=== PATIENT | male | born 1980 | race Caucasian/White ===

== ENCOUNTER 2019-12-21 20:36 | Emergency (ER) | payer MEDICAID, SELFPAY ==
[2019-12-21 20:41] VITALS: BP 122/72; PULSE 69; RESP 18; TEMP 35.7; O2SAT 96; BMI 21.9
== END 2019-12-21 21:52 | disposition left against medical advice (07) ==
PROVIDERS: Emergency Provider Physician Assistant; PCP Family Medicine
DX: Z53.21 Procedure and treatment not carried out due to patient leaving prior to being seen by health care provider (principal)
CPT/HCPCS: 99281

== ENCOUNTER 2020-01-18 06:54 | Emergency (ER) | payer MEDICAID, SELFPAY ==
[2020-01-18 06:57] VITALS: BP 132/86; PULSE 114; RESP 18; TEMP 36.6; O2SAT 96
--- NOTE | 2020-01-18 07:13 | ED_ITS ---
HPI - Nausea/Vomiting/Diarrhea General: Chief complaint: Nausea/Vomiting/Diarrhea Stated complaint: N/V Time Seen by Provider: 01/18/20 07:08 History of Present Illness: HPI Narrative: Patient arrives via EMS complaining of nausea and vomiting. Patient states he does not know when he became sick. Patient also states that he does not know his own medical history. Patient has been verbally abusive to nursing. Gross examination is consistent with a patient under the influence of methamphetamine. [facility] ED PFSH: Social History Smoking and tobacco status: current every day smoker Course Vital Signs: Vital signs: Vital Signs Temperature 97.9 F 01/18/20 06:57 Pulse Rate 114 H 01/18/20 06:57 Respiratory Rate 18 01/18/20 06:57 Blood Pressure 132/86 01/18/20 06:57 Pulse Oximetry 96 01/18/20 06:57 MDM - Nausea/Vomiting/Diarrhea Lab Data: Labs: Lab Results 01/18/20 01/18/20 01/18/20 Range/Units 07:22 07:22 07:22 WBC 12.8 H (4.0-10.0) 10^3/ uL RBC 4.73 (4.1-5.3) 10^6/u L Hgb 14.8 (11.7-16.6) g/dL Hct 43.5 (42.0-52.0) % MCV 92.0 (80-94) fL MCH 31.3 (28.0-34.0) pg MCHC 34.0 (30.0-36.0) g/dL RDW 12.6 (12.1-15.1) % Plt Count 235 (130-400) 10^3/c mm MPV 11.4 H (7.4-10.4) fL Neut % (Auto) 68.3 % Lymph % (Auto) 20.8 % [place] % (Auto) 7.0 % Eos % (Auto) 2.9 % Baso % (Auto) 0.7 % Neut # (Auto) 8.8 H (1.8-7.7) 10^3/u L Lymph # (Auto) 2.7 (0.8-4.8) 10^3/u L [place] # (Auto) 0.9 (0.2-0.9) 10^3/u L Eos # (Auto) 0.4 (0.0-0.8) 10^3/u L Baso # (Auto) 0.1 (0.0-0.1) 10^3/u L Nucleated RBC % (a uto) 0 % Nucleated RBCs # 0.0 /100WBC Sodium 139 (136-145) mmol/L Potassium 3.6 (3.5-5.1) mmol/L Chloride 102 (98-107) mmol/L Carbon Dioxide 22 (22-29) mmol/L Anion Gap 18.6 (5-19) BUN 17 (6-20) mg/dL Creatinine 1.0 (0.7-1.2) mg/dL GFR Calculation 84.1 L (90-130) mL/min Glucose 131 H (65-115) mg/dL Calculated Osmolal ity 286 (285-295) mOsm/k g Lactate 1.6 (0.5-2.2) mmol/L Calcium 9.9 (8.5-10.5) mg/dL Total Bilirubin 0.4 (0.15-1.2) mg/dL AST 22 (0-40) U/L ALT 17 (0-41) U/L Alkaline Phosphata se 56 (40-130) IU/L Total Protein 7.0 (6.6-8.7) g/dL Albumin 4.2 (3.5-5.2) g/dL Globulin 2.8 (1.3-4.6) g/dL Lipase 22 (13-60) U/L Salicylates < 0.3 L (3-10) mg/dL Acetaminophen < 5.0 L (10-30) ug/mL Ethyl Alcohol < 10 (0-10) mg/dL Discharge Plan Discharge Patient Disposition: Left Against Medical Advice Clinical Impression: Drug-induced nausea and vomiting Condition: Stable Prescriptions: No Action No Known Home Medications RF: 0 Discharge Orders: Discharge Order (Routine); Ordered 01/18/20 Ordered By: Wilber Apple Referrals: Aric Chao MD [Primary Care Provider] - Coding Level of Care Code ED Distribution Field Engineer for [facility] Khoa
[2020-01-18] MEDS: ondansetron 2 mg/ML SDV 2 mL 8 MG IVP (07:15)
[2020-01-18] MEDS: haloperidol inj 5 mg/mL INJ 1 mL 10 MG IM (07:15)
[2020-01-18] MEDS: sodium chloride 0.9% 1,000 ML 999 ML IV (07:15)
[2020-01-18 07:37] LABS: Basophils # 0.1 10^3/uL (0.0-0.1); Basophils % 0.7 %; Eosinophils # 0.4 10^3/uL (0.0-0.8); Eosinophils % 2.9 %; Hematocrit 43.5 % (42.0-52.0); Hemoglobin 14.8 g/dL (11.7-16.6); Lymphocytes # 2.7 10^3/uL (0.8-4.8); Lymphocytes % 20.8 %; Mean Corpuscular Hemoglobin 31.3 pg (28.0-34.0); Mean Platelet Volume 11.4 fL (7.4-10.4); Monocytes # 0.9 10^3/uL (0.2-0.9); Neutrophils # 8.8 10^3/uL (1.8-7.7); Neutrophils % 68.3 %; Nucleated Red Blood Cells % 0 %; Platelet Count 235 10^3/cmm (130-400); Red Blood Count 4.73 10^6/uL (4.1-5.3); Red Cell Distribution Width 12.6 % (12.1-15.1); White Blood Count 12.8 10^3/uL (4.0-10.0)
[2020-01-18 07:44] LABS: Lactate (Lactic Acid level) 1.6 mmol/L (0.5-2.2)
[2020-01-18 07:47] LABS: Alanine Aminotransferase 17 U/L (0-41); Albumin Level 4.2 g/dL (3.5-5.2); Alkaline Phosphatase 56 IU/L (40-130); Anion Gap 18.6 (5-19); Aspartate Amino Transferase 22 U/L (0-40); Blood Urea Nitrogen 17 mg/dL (6-20); Calcium 9.9 mg/dL (8.5-10.5); Carbon Dioxide 22 mmol/L (22-29); Chloride 102 mmol/L (98-107); Globulin 2.8 g/dL (1.3-4.6); Glomerular Filtration Rate 84.1 mL/min (90-130); Glucose 131 mg/dL (65-115); Lipase 22 U/L (13-60); Osmolality Calculated 286 mOsm/kg (285-295); Potassium 3.6 mmol/L (3.5-5.1); Sodium 139 mmol/L (136-145); Total Bilirubin 0.4 mg/dL (0.15-1.2)
[2020-01-18 07:49] LABS: Acetaminophen < 5.0 ug/mL (10-30); Alcohol Level < 10 mg/dL (0-10); Salicylate < 0.3 mg/dL (3-10)
== END 2020-01-18 08:13 | disposition left against medical advice (07) ==
PROVIDERS: Emergency Provider Family Medicine; PCP Family Medicine
DX: R11.2 Nausea with vomiting, unspecified (principal); Z53.21 Procedure and treatment not carried out due to patient leaving prior to being seen by health care provider; F17.210 Nicotine dependence, cigarettes, uncomplicated
CPT/HCPCS: 12345; 36415; 80053; 80307; 83605; 83690; 85025; 96361; 96372; 96374; 96375; 99282; 99283; J1630; J2405; J7030

== ENCOUNTER 2020-03-29 09:20 | Inpatient (IN) | payer MEDICAID, SELFPAY ==
[2020-03-29 09:36] VITALS: BMI 23.5
[2020-03-29 09:40] VITALS: BP 113/79; PULSE 71; RESP 16; TEMP 36.7; O2SAT 97
[2020-03-29 10:00] LABS: Basophils # 0.1 10^3/uL (0.0-0.1); Basophils % 0.7 %; Eosinophils # 0.3 10^3/uL (0.0-0.8); Eosinophils % 3.5 %; Hematocrit 44.4 % (42.0-52.0); Hemoglobin 14.7 g/dL (11.7-16.6); Lymphocytes # 2.8 10^3/uL (0.8-4.8); Lymphocytes % 34.8 %; Mean Corpuscular HGB Conc 33.1 g/dL (30.0-36.0); Mean Corpuscular Hemoglobin 31.2 pg (28.0-34.0); Mean Corpuscular Volume 94.3 fL (80-94); Mean Platelet Volume 12.8 fL (7.4-10.4); Monocytes # 0.5 10^3/uL (0.2-0.9); Monocytes % 6.6 %; Neutrophils # 4.35 10^3/uL (1.8-7.7); Neutrophils % 54.3 %; Nucleated Red Blood Cells % 0 %; Platelet Count 154 10^3/cmm (130-400); Red Blood Count 4.71 10^6/uL (4.1-5.3); Red Cell Distribution Width 12.6 % (12.1-15.1)
[2020-03-29 10:10] LABS: Add Urine Microscopic? NO
--- NOTE | 2020-03-29 10:18 | ED_ITS ---
HPI - Psych General: Chief Complaint: Psychiatric Symptoms Stated Complaint: SI Time Seen by Provider: 03/29/20 09:39 History of Present Illness: HPI Narrative: Patient states he suicidal said he took a bunch of somas the other day and is doing meth that he is snorting. That he just done while living more he was try to kill himself and he comes in here seeking help today MD complaint: suicidal ideation Onset (ago): day(s) Duration: constant and getting worse History of same: Yes Relieving factors: none Context: recent drug abuse Associated symptoms: Reports depression and suicidal ideation If self harm: intentional overdose Review of Systems Const: Denies: fever(s), chills or body aches Eyes: Denies: change in vision or blurry vision ENMT: Denies: throat pain or nasal congestion Card: Denies: chest pain or dyspnea on exertion Resp: Denies: dyspnea, productive cough or non-productive cough GI: Denies: abdominal pain, nausea or vomiting : Denies: difficulty urinating Musc: Denies: extremity pain Skin/Breast: Denies: rash Neuro: Denies: headache(s) Psych: Reports: anxiety, depression and suicidal ideation Justice/Lymph: Denies: easy bruising PFSH ED PFSH: Social History Smoking and tobacco status: current every day smoker Physical Exam Const: COMMON NORMALS: no acute distress, average body habitus and patient oriented x3 HENMT: COMMON NORMALS: normocephalic HEAD & SCALP: normal to inspection and normocephalic FACE & SINUS: normal facial exam Eye: COMMON NORMALS: conjunctivae normal GENERAL EYE: appearance normal, both eyes and all related structures CONJUNCTIVA: Yes conjunctivae normal Neck/C-Spine: COMMON NORMALS: no JVD Chest: COMMONS NORMALS: normal inspection of the chest Resp: COMMON NORMALS: normal respiratory effort and clear to auscultation bilaterally AUSCULTATION: clear to auscultation bilaterally Cardio: COMMON NORMALS: no JVD, regular rate and regular rhythm RATE: regular rate RHYTHM: regular rhythm GI: COMMON NORMALS: Normal to inspection, nondistended, normoactive bowel sounds present Extremity: COMMON NORMALS: normal to inspection and full ROM Neuro: COMMON NORMALS: patient oriented x3 Psych: ATTITUDE: Yes agitated MOOD & AFFECT: Yes anxious MDM - Psych MDM Narrative: Medical decision making narrative: Dr. Henson agrees accept patient in Neuropsych Unit Lab Data: Labs: Lab Results 03/29/20 03/29/20 03/29/20 Range/Units 09:54 09:55 09:55 WBC 8.0 (4.0-10.0) 10^3/ uL RBC 4.71 (4.1-5.3) 10^6/u L Hgb 14.7 (11.7-16.6) g/dL Hct 44.4 (42.0-52.0) % MCV 94.3 H (80-94) fL MCH 31.2 (28.0-34.0) pg MCHC 33.1 (30.0-36.0) g/dL RDW 12.6 (12.1-15.1) % Plt Count 154 (130-400) 10^3/c mm MPV 12.8 H (7.4-10.4) fL Neut % (Auto) 54.3 % Lymph % (Auto) 34.8 % [place] % (Auto) 6.6 % Eos % (Auto) 3.5 % Baso % (Auto) 0.7 % Neut # (Auto) 4.35 (1.8-7.7) 10^3/u L Lymph # (Auto) 2.8 (0.8-4.8) 10^3/u L [place] # (Auto) 0.5 (0.2-0.9) 10^3/u L Eos # (Auto) 0.3 (0.0-0.8) 10^3/u L Baso # (Auto) 0.1 (0.0-0.1) 10^3/u L Nucleated RBC % (a uto) 0 % Nucleated RBCs # 0.0 /100WBC Sodium 135 L (136-145) mmol/L Potassium 4.4 (3.5-5.1) mmol/L Chloride 100 (98-107) mmol/L Carbon Dioxide 26 (22-29) mmol/L Anion Gap 13.4 (5-19) BUN 16 (6-20) mg/dL Creatinine 1.0 (0.7-1.2) mg/dL GFR Calculation 83.6 L (90-130) mL/min Glucose 93 (65-115) mg/dL Calculated Osmolal ity 276 L (285-295) mOsm/k g Calcium 9.6 (8.5-10.5) mg/dL Urine Color Yellow (Yellow) Urine Appearance Clear (CLEAR) Urine pH 5 (5-7) Ur Specific Gravit y 1.005 (1.005-1.030) Urine Protein Neg (Negative) Urine Glucose (UA) Norm (Normal) Urine Ketones Negative (Negative) Urine Blood Neg (Negative) Urine Nitrate Negative (Negative) Urine Bilirubin Neg (NEGATIVE) Urine Urobilinogen Neg (Negative) mg/dL Ur Leukocyte Ria ase Negative (Negative) Salicylates < 0.3 L (3-10) mg/dL Acetaminophen < 5.0 L (10-30) ug/mL Discharge Plan Discharge Prescriptions: No Action No Known Home Medications RF: 0 Coding Level of Care Code ED Export Sales Manager for [facility] Exam Comprehensive
[2020-03-29 10:21] LABS: Slide Review Slide Review Perform
[2020-03-29 10:23] LABS: Anion Gap 13.4 (5-19); Blood Urea Nitrogen 16 mg/dL (6-20); Calcium 9.6 mg/dL (8.5-10.5); Carbon Dioxide 26 mmol/L (22-29); Chloride 100 mmol/L (98-107); Glomerular Filtration Rate 83.6 mL/min (90-130); Glucose 93 mg/dL (65-115); Osmolality Calculated 276 mOsm/kg (285-295); Potassium 4.4 mmol/L (3.5-5.1); Sodium 135 mmol/L (136-145)
[2020-03-29 10:24] LABS: Acetaminophen < 5.0 ug/mL (10-30); Salicylate < 0.3 mg/dL (3-10)
[2020-03-29 10:24] LABS: Bilirubin Urine Neg (NEGATIVE); Blood Urine Neg (Negative); Glucose Urine UA Norm (Normal); Ketones Urine Negative (Negative); Leukocyte Esterase Urine Negative (Negative); Nitrate Urine Negative (Negative); Protein Urine Neg (Negative); Specific Gravity, Urine 1.005 (1.005-1.030); Urine Appearance Clear (CLEAR); Urine Color Yellow (Yellow); Urobilinogen Urine Neg (Negative); pH Urine 5 (5-7)
[2020-03-29] MEDS: LORazepam 1 mg Tablet PO (10:28)
[2020-03-29 10:55] LABS: Amphetamines Screen Urine Positive (Negative); Barbiturates Screen Urine Negative (Negative); Benzodiazepines Screen Urine Negative (Negative); Cocaine Screen Urine Negative (Negative); Opiate Screen Urine Negative (Negative); PCP Screen Urine Negative (Negative); THC Screen Urine Positive (Negative)
[2020-03-29 11:19] VITALS: BP 115/85; PULSE 85; O2SAT 98
[2020-03-29 12:17] VITALS: BP 103/71; PULSE 71; RESP 20; TEMP 36.6; O2SAT 100
[2020-03-29 13:19] VITALS: BP 103/71; PULSE 71; RESP 20; TEMP 36.6; O2SAT 100
[2020-03-29 14:00] VITALS: BP 103/71; PULSE 71; RESP 20; TEMP 36.6; O2SAT 100
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
[2020-03-29 21:12] VITALS: RESP 20
--- NOTE | 2020-03-29 21:13 | PC.NURSE ---
Unable to get pts evening vitals on 03/29/20
[2020-03-29] MEDS: trazodone 50 mg Tablet PO (21:16)
[2020-03-30 06:00] VITALS: BP 99/66; PULSE 48; RESP 16; TEMP 36.7; O2SAT 96
--- NOTE | 2020-03-30 12:40 | PC.NURSE ---
Patient is avoids being touched. He tends to isolate and does not engage easily in conversation. He takes medication as ordered but does not like having his vitals taken.
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
[2020-03-30 14:00] VITALS: BP 102/60; PULSE 57; RESP 20; TEMP 36.9; O2SAT 99
[2020-03-30] MEDS: calcium carbonate 500 mg Chew Tablet 1000 MG PO (18:14)
[2020-03-30 21:54] VITALS: BP 95/53; PULSE 57; RESP 22; TEMP 37.2; O2SAT 99
[2020-03-31 06:00] VITALS: BP 100/59; PULSE 49; RESP 18; TEMP 36.9; O2SAT 97
--- NOTE | 2020-03-31 11:41 | PC.RESP ---
Smoking Cessation information sent to patient.
--- NOTE | 2020-03-31 13:48 | PC.NURSE ---
AMA Patient came to nurses station agitated saying he wants to leave AM, when asked why, he states we aren't doing anything for him, explained to him his plan of care and he continues to insist on leaving AM. Patient filled out [place] paperwork, he denies any SI/HI, AH/VH. Patient belongings returned to patient. States he is walking to the [facility].
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
== END 2020-03-31 13:45 | disposition left against medical advice (07) | DRG 881 ==
LOC: ER 10:03 → NP 11:08
PROVIDERS: Emergency Provider Nurse Practitioner Family
DX: F32.9 Major depressive disorder, single episode, unspecified (principal); R45.851 Suicidal ideations; F17.210 Nicotine dependence, cigarettes, uncomplicated; F15.10 Other stimulant abuse, uncomplicated; Z53.29 Procedure and treatment not carried out because of patient's decision for other reasons
CPT/HCPCS: 12345; 36415; 80048; 80306; 80307; 81003; 85025; 99284

== ENCOUNTER 2020-09-29 07:46 | Emergency (ER) | payer MEDICAID, SELFPAY ==
[2020-09-29 07:48] VITALS: BP 117/99; PULSE 93; RESP 18; TEMP 37.6; O2SAT 100; BMI 23.5
--- NOTE | 2020-09-29 07:53 | CT_ITS ---
WS: [id number] CT ABDOMEN PELVIS TECHNIQUE: Contrast-enhanced CT of the abdomen and pelvis with coronal and sagittal reformatted image s. CLINICAL INFORMATION: abd pain COMPARISON: None. DLP: 249.[address] scans at [facility] use at least one of these dose optimization techniques: automat ed exposure control; mA and/or kV adjustment per patient size (includes targeted exams where dose is matched to clinical indication); or iterative reconstruction. FINDINGS: Appendix is normal right lower quadrant. Scattered air and fluid in normal caliber small bowel. Mild fecal retention in the colon. No evidence of high-grade obstruction. Distended stomach with air-fluid level. Normal liver. Normal gallbladder. Normal spleen. Lung bases are well aerated. Adrenal glands are norm al. Hypoplastic left kidney. No hydronephrosis in either kidney. Normal caliber abdominal aorta. Norm al caliber abdominal aorta. No abdominal or pelvic lymphadenopathy. CT/CT abdomen pelvis w con* [id number] IMPRESSION: 1. Normal appendix in the right lower quadrant. No evidence of acute appendici tis. 2. No hydronephrosis in either kidney. Congenital hypoplasia left kidney. 3. Scattered air and fluid in normal caliber small bowel with a few air-fluid levels. No evidence of high-grade obstruction. Findings can be seen with small bowel enteritis. 4. Persistent air within the colon with mild fecal retention. 5. Fluid distended stomach with air-fluid level. 6. Incidentally
[2020-09-29] MEDS: lactated ringers 1,000 ML 999 ML IV (07:59)
[2020-09-29] MEDS: ondansetron 2 mg/ML SDV 2 mL 4 MG IVP (07:59)
[2020-09-29] MEDS: morphine 4 mg/mL SDV 1 mL IVP (07:59)
[2020-09-29 08:23] LABS: Basophils % 0.2 %; Hematocrit 45.5 % (42.0-52.0); Hemoglobin 15.7 g/dL (11.7-16.6); Lymphocytes # 1.2 10^3/uL (0.8-4.8); Lymphocytes % 10.2 %; Mean Corpuscular HGB Conc 34.5 g/dL (30.0-36.0); Mean Corpuscular Hemoglobin 30.4 pg (28.0-34.0); Mean Platelet Volume 12.1 fL (7.4-10.4); Monocytes # 0.4 10^3/uL (0.2-0.9); Monocytes % 3.3 %; Neutrophils # 10.43 10^3/uL (1.8-7.7); Neutrophils % 86.1 %; Nucleated Red Blood Cells % 0 %; Platelet Count 220 10^3/cmm (130-400); Red Blood Count 5.17 10^6/uL (4.1-5.3); Red Cell Distribution Width 12.5 % (12.1-15.1); White Blood Count 12.1 10^3/uL (4.0-10.0)
[2020-09-29 08:47] LABS: Alanine Aminotransferase 18 U/L (0-41); Albumin Level 4.6 g/dL (3.5-5.2); Alkaline Phosphatase 66 IU/L (40-130); Anion Gap 17.9 (5-19); Aspartate Amino Transferase 21 U/L (0-40); Blood Urea Nitrogen 16 mg/dL (6-20); Carbon Dioxide 24 mmol/L (22-29); Chloride 100 mmol/L (98-107); Globulin 3.1 g/dL (1.3-4.6); Glomerular Filtration Rate 94.4 mL/min (90-130); Glucose 134 mg/dL (65-115); Lipase 13 U/L (13-60); Osmolality Calculated 289 mOsm/kg (285-295); Potassium 3.9 mmol/L (3.5-5.1); Sodium 138 mmol/L (136-145); Total Bilirubin 0.5 mg/dL (0.15-1.2); Total Protein 7.7 g/dL (6.6-8.7)
[2020-09-29] MEDS: sodium chloride 0.9% 1,000 ML 999 ML IV (08:48)
[2020-09-29 08:50] LABS: Alcohol Level < 10 mg/dL (0-10)
[2020-09-29] MEDS: iohexol 300 mg/mL 100 mL Btl IV (08:55)
[2020-09-29 09:18] LABS: Add Urine Microscopic? NO
[2020-09-29 09:19] VITALS: BP 128/70; PULSE 60; RESP 18; O2SAT 99
[2020-09-29 09:26] LABS: Bilirubin Urine Neg (Negative); Blood Urine Neg (Negative); Glucose Urine UA Norm (Normal); Ketones Urine Negative (Negative); Leukocyte Esterase Urine Negative (Negative); Nitrate Urine Negative (Negative); Protein Urine Neg (Negative); Sulfosalicylic Acid Urine Negative (Negative); Urine Appearance Clear (CLEAR); Urine Color Yellow (Yellow); Urobilinogen Urine Norm (Negative); pH Urine 8.5 (5-7)
--- NOTE | 2020-09-29 09:29 | ED_ITS ---
HPI - Abdominal Pain General: Chief Complaint: Abdominal Pain Stated Complaint: ABDOMINAL PAIN/ N/V Time Seen by Provider: 09/29/20 07:53 Source: patient and EMS History of Present Illness: HPI narrative: Patient presents via EMS with abdominal pain and nausea and vomiting. Patient is very aggressive and not cooperative. He keeps yelling and stating that he does not want answer questions because his abdomen hurts. He is cussing and being verbally abusive to the staff. He continues to threaten the staff with physical violence. Only history I can get from patient is that his abdomen hurts. He refuses to cooperate with physical exam. Quality: cramping Associated Symptoms: Reports nausea and vomiting; Denies fever(s) Review of Systems General: Reports: 10 or more systems reviewed and unremarkable except in HPI and below Const: Denies: fever(s) ENMT: Denies: throat pain Card: Denies: chest pain Resp: Denies: dyspnea GI: Reports: abdominal pain, nausea and vomiting : Denies: flank pain Musc: Denies: neck pain Skin/Breast: Denies: rash Neuro: Denies: headache(s) PFSH ED PFSH: Social History Smoking and tobacco status: current every day smoker Physical Exam Narrative: EXAM NARRATIVE: Patient not being cooperative with exam. Exam is limited secondary to patient's uncooperation. Const: COMMON NORMALS: patient oriented x3 HENMT: COMMON NORMALS: normocephalic, atraumatic, hearing grossly normal bilaterally, external ears normal, EAC's normal, TM's normal bilaterally, Normal external nose present, Normal nasal mucous membranes and turbinates present, moist oral mucous membranes, oropharynx normal, dentition normal and gingiva normal HEAD & SCALP: normocephalic and atraumatic NOSE: Normal external nose present and Normal nasal mucous membranes and turbinates present EXTERNAL EAR: Yes external ears normal EXTERNAL AUDITORY CANAL: EAC's normal TYMPANIC MEMBRANE: TM's normal bilaterally Neck/C-Spine: COMMON NORMALS: no JVD Resp: COMMON NORMALS: normal respiratory effort, No retractions, No use of accessory muscles, clear to auscultation bilaterally and percussion normal AUSCULTATION: clear to auscultation bilaterally PERCUSSION: percussion normal Cardio: COMMON NORMALS: no JVD, regular rate, regular rhythm, S1 normal heart sound present, S2 normal heart sound present, No gallops present (Cardio), No clicks present (Cardio), No murmurs present (Cardio), No rub (Cardio) and Peripheral pulses 2+ throughout RATE: regular rate RHYTHM: regular rhythm HEART SOUNDS: S1 normal heart sound present and S2 normal heart sound present PERIPHERAL PULSES: Peripheral pulses 2+ throughout GI: COMMON NORMALS: Soft to palpation PALPATION: Yes Soft to palpation and Yes Tenderness to palpation present (GI) (Diffusely) PERCUSSION: normal to percussion Neuro: COMMON NORMALS: patient oriented x3, CN's II-XII intact bilaterally, moves all extremities, no focal motor deficits, no sensory deficits noted, deep tendon reflexes 2+ bilaterally and gait normal Course Vital Signs: Vital signs: Vital Signs Temperature 99.7 F H 09/29/20 07:48 Pulse Rate 60 09/29/20 09:19 Respiratory Rate 18 09/29/20 09:19 Blood Pressure 128/70 09/29/20 09:19 Pulse Oximetry 99 09/29/20 09:19 MDM - Abdominal Pain MDM Narrative: Medical decision making narrative: Patient with enteritis on CT. No other significant abnormality noted on labs or imaging. Will discharge patient home with Mikel. Lab Data: Labs: Lab Results 09/29/20 09/29/20 09/29/20 Range/Units 08:15 08:15 09:10 WBC 12.1 H (4.0-10.0) 10^3/ uL RBC 5.17 (4.1-5.3) 10^6/u L Hgb 15.7 (11.7-16.6) g/dL Hct 45.5 (42.0-52.0) % MCV 88.0 (80-94) fL MCH 30.4 (28.0-34.0) pg MCHC 34.5 (30.0-36.0) g/dL RDW 12.5 (12.1-15.1) % Plt Count 220 (130-400) 10^3/c mm MPV 12.1 H (7.4-10.4) fL Neut % (Auto) 86.1 % Lymph % (Auto) 10.2 % [place] % (Auto) 3.3 % Eos % (Auto) 0.0 % Baso % (Auto) 0.2 % Neut # (Auto) 10.43 H (1.8-7.7) 10^3/u L Lymph # (Auto) 1.2 (0.8-4.8) 10^3/u L [place] # (Auto) 0.4 (0.2-0.9) 10^3/u L Eos # (Auto) 0.0 (0.0-0.8) 10^3/u L Baso # (Auto) 0.0 (0.0-0.1) 10^3/u L Nucleated RBC % (a uto) 0 % Nucleated RBCs # 0.0 /100WBC Sodium 138 (136-145) mmol/L Potassium 3.9 (3.5-5.1) mmol/L Chloride 100 (98-107) mmol/L Carbon Dioxide 24 (22-29) mmol/L Anion Gap 17.9 (5-19) BUN 16 (6-20) mg/dL Creatinine 0.9 (0.7-1.2) mg/dL GFR Calculation 94.4 (90-130) mL/min Glucose 134 H (65-115) mg/dL Calculated Osmolal ity 289 (285-295) mOsm/k g Calcium 10.0 (8.5-10.5) mg/dL Total Bilirubin 0.5 (0.15-1.2) mg/dL AST 21 (0-40) U/L ALT 18 (0-41) U/L Alkaline Phosphata se 66 (40-130) IU/L Total Protein 7.7 (6.6-8.7) g/dL Albumin 4.6 (3.5-5.2) g/dL Globulin 3.1 (1.3-4.6) g/dL Lipase 13 (13-60) U/L Urine Color (Yellow) Urine Appearance (CLEAR) Urine pH (5-7) Ur Specific Gravit y (1.005-1.030) Urine Protein (Negative) Urine Glucose (UA) (Normal) Urine Ketones (Negative) Urine Blood (Negative) Urine Nitrate (Negative) Urine Bilirubin (Negative) Prot Sulfosalicyli c Acd (Negative) Urine Urobilinogen (Negative) mg/dL Ur Leukocyte Ria ase (Negative) Urine Opiates Scre en Positive H (Negative) ng/mL Ur Barbiturates Sc reen Negative (Negative) ng/mL Ur Phencyclidine S crn Negative (Negative) ng/mL Ur Amphetamines Sc reen Negative (Negative) ng/mL U Benzodiazepines Scrn Negative (Negative) ng/mL Urine Cocaine Scre en Negative (Negative) ng/mL U Marijuana (THC) Screen Positive H (Negative) ng/mL Ethyl Alcohol < 10 (0-10) mg/dL 09/29/20 Range/Units 09:10 WBC (4.0-10.0) 10^3/ uL RBC (4.1-5.3) 10^6/u L Hgb (11.7-16.6) g/dL Hct (42.0-52.0) % MCV (80-94) fL MCH (28.0-34.0) pg MCHC (30.0-36.0) g/dL RDW (12.1-15.1) % Plt Count (130-400) 10^3/c mm MPV (7.4-10.4) fL Neut % (Auto) % Lymph % (Auto) % [place] % (Auto) % Eos % (Auto) % Baso % (Auto) % Neut # (Auto) (1.8-7.7) 10^3/u L Lymph # (Auto) (0.8-4.8) 10^3/u L [place] # (Auto) (0.2-0.9) 10^3/u L Eos # (Auto) (0.0-0.8) 10^3/u L Baso # (Auto) (0.0-0.1) 10^3/u L Nucleated RBC % (a uto) % Nucleated RBCs # /100WBC Sodium (136-145) mmol/L Potassium (3.5-5.1) mmol/L Chloride (98-107) mmol/L Carbon Dioxide (22-29) mmol/L Anion Gap (5-19) BUN (6-20) mg/dL Creatinine (0.7-1.2) mg/dL GFR Calculation (90-130) mL/min Glucose (65-115) mg/dL Calculated Osmolal ity (285-295) mOsm/k g Calcium (8.5-10.5) mg/dL Total Bilirubin (0.15-1.2) mg/dL AST (0-40) U/L ALT (0-41) U/L Alkaline Phosphata se (40-130) IU/L Total Protein (6.6-8.7) g/dL Albumin (3.5-5.2) g/dL Globulin (1.3-4.6) g/dL Lipase (13-60) U/L Urine Color Yellow (Yellow) Urine Appearance Clear (CLEAR) Urine pH 8.5 H (5-7) Ur Specific Gravit y 1.010 (1.005-1.030) Urine Protein Neg (Negative) Urine Glucose (UA) Norm (Normal) Urine Ketones Negative (Negative) Urine Blood Neg (Negative) Urine Nitrate Negative (Negative) Urine Bilirubin Neg (Negative) Prot Sulfosalicyli c Acd Negative (Negative) Urine Urobilinogen Norm (Negative) mg/dL Ur Leukocyte Ria ase Negative (Negative) Urine Opiates Scre en (Negative) ng/mL Ur Barbiturates Sc reen (Negative) ng/mL Ur Phencyclidine S crn (Negative) ng/mL Ur Amphetamines Sc reen (Negative) ng/mL U Benzodiazepines Scrn (Negative) ng/mL Urine Cocaine Scre en (Negative) ng/mL U Marijuana (THC) Screen (Negative) ng/mL Ethyl Alcohol (0-10) mg/dL Discharge Plan Discharge Patient Disposition: Home Clinical Impression: Gastroenteritis Condition: Stable Prescriptions: New Zofran 4 mg tablet 4 mg PO TID 5 Days Qty: 15 RF: 0 dicyclomine 10 mg capsule 10 mg PO TID Qty: 20 RF: 0 No Action A Mix Of Meds See Rx Instructions .ROUTE .COMPLEX RF: 0 ibuprofen 200 mg Tablet 200 - 800 mg PO PRN RF: 0 Discharge Orders: Discharge ED (Routine); Ordered 09/29/20 Ordered By: Spencer Renteria Discharge Diet: Advance as tolerated Discharge Activity: Resume usual activity Patient Instructions: Opioid Safety Coding Level of Care Code ED Helpdesk Administrator for Linnea Fwd Exam Detailed
[2020-09-29 09:32] LABS: Amphetamines Screen Urine Negative (Negative); Barbiturates Screen Urine Negative (Negative); Benzodiazepines Screen Urine Negative (Negative); Cocaine Screen Urine Negative (Negative); Opiate Screen Urine Positive (Negative); PCP Screen Urine Negative (Negative); THC Screen Urine Positive (Negative)
[2020-09-29 10:35] VITALS: BP 128/70; PULSE 60; RESP 18; O2SAT 99
== END 2020-09-29 10:36 | disposition home or self-care (01) ==
PROVIDERS: Emergency Provider Emergency Medicine
DX: K52.9 Noninfective gastroenteritis and colitis, unspecified (principal); F17.210 Nicotine dependence, cigarettes, uncomplicated
CPT/HCPCS: 74177; 80053; 80306; 80307; 81003; 83690; 85025; 96361; 96374; 96375; 99284; J2270; J2405; J7030; Q9967

== ENCOUNTER 2020-10-04 09:26 | Emergency (ER) | payer MEDICAID, SELFPAY ==
[2020-10-04 09:28] VITALS: BP 107/67; PULSE 63; RESP 16; TEMP 36.8; O2SAT 99; BMI 25.8
--- NOTE | 2020-10-04 09:45 | CT_ITS ---
WS: [id number] CT ABDOMEN AND PELVIS WITH CONTRAST HISTORY: Generalized abdominal pain. TECHNIQUE: Imaging performed of the abdomen and pelvis with IV contrast. Single phase imaging of the abdomen. Coronal and sagittal reformats are submitted. All CT scans at [facility] use at least one of these dose optimization techniques: automated exposure control; mA and/or kV adjustment per patient size (includes targeted exams where dose is matched to clinical indication); or iterativ e reconstruction. IV CONTRAST: Omnipaque 300; 95 mL IV. Oral contrast: No DLP: 247.7 mGy.cm COMPARISON: 09/29/2020. Lower thorax: Lung bases are hyperexpanded. Heart is normal size. No hiatal hernia. Liver/biliary system: Normal size with no intrahepatic dilatation. Gallbladder: Normal. No gallstones or wall thickening. No pericholecystic fluid. Pancreas: Poorly visualized tail of the pancreas. Cannot exclude a small amount of edema. Spleen: Normal. Adrenal glands: Normal. Right kidney: Normal. Left kidney: Moderate atrophy of the LEFT kidney. 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 Aorta: Normal. Lymphadenopathy: None. Free fluid: None. GI tract: There is marked fecal retention throughout the colon. No obstructive pattern. The appendix is partially visualized and normal. No obstructive pattern. Abdominal wall: Unremarkable abdominal wall. No hernia. Pelvis: Normal. Bones: Unremarkable. CT/CT abdomen pelvis w con* [id number] IMPRESSION: 1. No acute abdominal or pelvic process is identified. 2. Normal appendix. 3. Hypoplastic LEFT kidney, chronic stable finding. 4. Poor visualization of the body of the pancreas and tail. May be due to smal l amount of edema. Correlate for possible pancreatitis. 5. Diffuse moderate constipation. Notified David Boggs DO at 10/04/2020 10:52 AM.
[2020-10-04] MEDS: ondansetron 2 mg/ML SDV 2 mL 4 MG IVP (09:55)
[2020-10-04] MEDS: ketorolac 30 mg/mL INJ IVP (09:55)
[2020-10-04] MEDS: sodium chloride 0.9% 1,000 ML 999 ML IV (09:56)
[2020-10-04 10:04] LABS: Basophils # 0.1 10^3/uL (0.0-0.1); Basophils % 0.8 %; Eosinophils # 0.1 10^3/uL (0.0-0.8); Eosinophils % 0.7 %; Hematocrit 45.1 % (42.0-52.0); Hemoglobin 15.6 g/dL (11.7-16.6); Lymphocytes # 2.2 10^3/uL (0.8-4.8); Lymphocytes % 23.9 %; Mean Corpuscular HGB Conc 34.6 g/dL (30.0-36.0); Mean Corpuscular Hemoglobin 31.3 pg (28.0-34.0); Mean Corpuscular Volume 90.6 fL (80-94); Mean Platelet Volume 12.5 fL (7.4-10.4); Monocytes # 0.6 10^3/uL (0.2-0.9); Monocytes % 6.3 %; Neutrophils # 6.22 10^3/uL (1.8-7.7); Neutrophils % 68.1 %; Nucleated Red Blood Cells % 0 %; Platelet Count 187 10^3/cmm (130-400); Red Blood Count 4.98 10^6/uL (4.1-5.3); Red Cell Distribution Width 12.6 % (12.1-15.1); White Blood Count 9.1 10^3/uL (4.0-10.0)
[2020-10-04 10:28] LABS: Alanine Aminotransferase 13 U/L (0-41); Alkaline Phosphatase 58 IU/L (40-130); Anion Gap 12.6 (5-19); Aspartate Amino Transferase 9 U/L (0-40); Blood Urea Nitrogen 16 mg/dL (6-20); Calcium 9.1 mg/dL (8.5-10.5); Carbon Dioxide 27 mmol/L (22-29); Chloride 95 mmol/L (98-107); Globulin 2.7 g/dL (1.3-4.6); Glomerular Filtration Rate 108.2 mL/min (90-130); Glucose 99 mg/dL (65-115); Lipase 21 U/L (13-60); Osmolality Calculated 273 mOsm/kg (285-295); Potassium 3.6 mmol/L (3.5-5.1); Sodium 131 mmol/L (136-145); Total Bilirubin 0.5 mg/dL (0.15-1.2); Total Protein 6.7 g/dL (6.6-8.7)
[2020-10-04 10:30] VITALS: BP 112/69; PULSE 64; RESP 18; O2SAT 99
--- NOTE | 2020-10-04 10:33 | W.ED.ABDPA2 ---
HPI - Abdominal Pain General: Chief Complaint: Abdominal Pain Stated Complaint: ABD PAIN, VOMITING Time Seen by Provider: 10/04/20 09:27 History of Present Illness: HPI narrative: 40-year-old male presents emergency room with complaint of abdominal pain. He was here 4 days ago with a similar complaint. He was given Bentyl at that time and discharge. CT and lab work at that time were generally unremarkable he states has not gotten any better since then. He denies any fever he has had constipation but no diarrhea denies any hemoptysis hematemesis coffee-ground emesis or melena. MD elicited complaint: abdominal pain Pertinent past history: constipation Onset (ago): day(s) Pain Consistency: constant Location: Diffuse Severity: moderate Quality: cramping Radiation: none Migration to: no migration Exacerbating factors: nothing Associated Symptoms: Reports constipation, GI cramping, nausea and poor appetite; Denies anorexia, belching, bloating, change in bowel habits, change in stool character, chills, coffee ground emesis, diarrhea, dyspepsia, dysuria, excessive flatus, fever(s), heartburn, hematochezia, hematuria, hematemesis, fecal incontinence, loose stools, melena, syncope and vomiting Review of Systems Const: Denies: fever(s) or chills ENMT: Denies: throat pain, ear or mastoid pain, nasal discharge or nasal congestion Card: Denies: syncope Resp: Denies: dyspnea, productive cough or non-productive cough GI: Reports: nausea, constipation and GI cramping; Denies: vomiting, hematemesis, coffee ground emesis, heartburn, diarrhea, bloating, belching, excessive flatus, fecal incontinence, change in bowel habits, change in stool character, hematochezia or melena : Denies: dysuria Skin/Breast: Denies: rash or pruritus PFSH ED PFSH: Social History Smoking and tobacco status: current every day smoker Physical Exam Const: COMMON NORMALS: no acute distress GENERAL APPEARANCE: cooperative and comfortable ORIENTATION/CONSCIOUSNESS: Yes awake, Yes oriented to person, Yes oriented to place and Yes oriented to time HENMT: COMMON NORMALS: normocephalic, atraumatic and hearing grossly normal bilaterally HEAD & SCALP: normocephalic and atraumatic Eye: COMMON NORMALS: Equal, round and reactive pupils present, EOMs intact bilaterally, conjunctivae normal and no scleral icterus CONJUNCTIVA: Yes conjunctivae normal PUPIL: Yes Equal, round and reactive pupils present Neck/C-Spine: COMMON NORMALS: full ROM, no lymphadenopathy, supple and no JVD Lymph: LYMPHATIC: no lymphadenopathy noted and no lymphedema noted Resp: COMMON NORMALS: normal respiratory effort, No retractions, No use of accessory muscles and clear to auscultation bilaterally AUSCULTATION: clear to auscultation bilaterally Cardio: COMMON NORMALS: no JVD, regular rate, regular rhythm and No murmurs present (Cardio) RATE: regular rate RHYTHM: regular rhythm GI: COMMON NORMALS: Soft to palpation and No hepatosplenomegaly present AUSCULTATION: Yes normoactive bowel sounds PALPATION: Yes Soft to palpation, No Tenderness to palpation present (GI), No Guarding due to palpation present (GI) and Yes No hepatosplenomegaly present Extremity: COMMON NORMALS: normal to inspection, capillary refill normal, no clubbing, cyanosis or edema, no calf tenderness and no pedal edema Neuro: SENSORIUM/ORIENTATION: Yes oriented to person, Yes oriented to place and Yes oriented to time Skin: COMMON NORMALS: no rashes or lesions noted GENERAL SKIN EXAM: no rashes or lesions noted Course Vital Signs: Vital signs: Vital Signs Temperature 98.3 F 10/04/20 09:28 Pulse Rate 65 10/04/20 11:12 Respiratory Rate 20 H 10/04/20 11:12 Blood Pressure 110/66 10/04/20 11:12 Pulse Oximetry 95 10/04/20 11:12 MDM - Abdominal Pain MDM Narrative: Medical decision making narrative: CT shows constipation. No acute pathology intra-abdominal. Have him use mag citrate 150 mL every 12 6 to 8 hours as needed clear liquid diet until gets relief. Lab Data: Labs: Lab Results 10/04/20 10/04/20 10/04/20 Range/Units 09:55 09:55 10:30 WBC 9.1 (4.0-10.0) 10^3/ uL RBC 4.98 (4.1-5.3) 10^6/u L Hgb 15.6 (11.7-16.6) g/dL Hct 45.1 (42.0-52.0) % MCV 90.6 (80-94) fL MCH 31.3 (28.0-34.0) pg MCHC 34.6 (30.0-36.0) g/dL RDW 12.6 (12.1-15.1) % Plt Count 187 (130-400) 10^3/c mm MPV 12.5 H (7.4-10.4) fL Neut % (Auto) 68.1 % Lymph % (Auto) 23.9 % [place] % (Auto) 6.3 % Eos % (Auto) 0.7 % Baso % (Auto) 0.8 % Neut # (Auto) 6.22 (1.8-7.7) 10^3/u L Lymph # (Auto) 2.2 (0.8-4.8) 10^3/u L Jack # (Auto) 0.6 (0.2-0.9) 10^3/u L Eos # (Auto) 0.1 (0.0-0.8) 10^3/u L Baso # (Auto) 0.1 (0.0-0.1) 10^3/u L Nucleated RBC % (a uto) 0 % Nucleated RBCs # 0.0 /100WBC Sodium 131 L (136-145) mmol/L Potassium 3.6 (3.5-5.1) mmol/L Chloride 95 L (98-107) mmol/L Carbon Dioxide 27 (22-29) mmol/L Anion Gap 12.6 (5-19) BUN 16 (6-20) mg/dL Creatinine 0.8 (0.7-1.2) mg/dL GFR Calculation 108.2 (90-130) mL/min Glucose 99 (65-115) mg/dL Calculated Osmolal ity 273 L (285-295) mOsm/k g Calcium 9.1 (8.5-10.5) mg/dL Total Bilirubin 0.5 (0.15-1.2) mg/dL AST 9 (0-40) U/L ALT 13 (0-41) U/L Alkaline Phosphata se 58 (40-130) IU/L Total Protein 6.7 (6.6-8.7) g/dL Albumin 4.0 (3.5-5.2) g/dL Globulin 2.7 (1.3-4.6) g/dL Lipase 21 (13-60) U/L Urine Color Straw (Yellow) Urine Appearance Clear (CLEAR) Urine pH 6.5 (5-7) Ur Specific Gravit y 1.005 (1.005-1.030) Urine Protein Neg (Negative) Urine Glucose (UA) Norm (Normal) Urine Ketones Negative (Negative) Urine Blood Neg (Negative) Urine Nitrate Negative (Negative) Urine Bilirubin Neg (Negative) Urine Urobilinogen Norm (Negative) mg/dL Ur Leukocyte Ria ase Negative (Negative) Discharge Plan Discharge Patient Disposition: Home Clinical Impression: Constipation Condition: Stable Prescriptions: New magnesium citrate Solution 150 ml PO BID PRN (Reason: constipation) Qty: 296 RF: 0 No Action A Mix Of Meds See Rx Instructions .ROUTE .COMPLEX RF: 0 ibuprofen 200 mg Tablet 200 - 800 mg PO PRN RF: 0 dicyclomine 10 mg capsule 10 mg PO TID Qty: 20 RF: 0 Discharge Orders: Discharge ED (Routine); Ordered 10/04/20 Ordered By: David Boggs Discharge Diet: Clear Liquid Discharge Activity: Increase activity as tolerated Patient Instructions: Opioid Safety Activity Restrictions/Additional Instructions: Magnesium citrate half a bottle every 6 hours hours as needed until desired results achieved Coding Level of Care Code ED Program Evaluation Consultant for Linnea Couch
[2020-10-04] MEDS: iohexol 300 mg/mL 100 mL Btl IV (10:40)
[2020-10-04 10:46] LABS: Add Urine Microscopic? NO
[2020-10-04 10:54] LABS: Bilirubin Urine Neg (Negative); Blood Urine Neg (Negative); Glucose Urine UA Norm (Normal); Ketones Urine Negative (Negative); Leukocyte Esterase Urine Negative (Negative); Nitrate Urine Negative (Negative); Protein Urine Neg (Negative); Specific Gravity, Urine 1.005 (1.005-1.030); Urine Appearance Clear (CLEAR); Urine Color Straw (Yellow); Urobilinogen Urine Norm (Negative); pH Urine 6.5 (5-7)
[2020-10-04 11:12] VITALS: BP 110/66; PULSE 65; RESP 20; O2SAT 95
== END 2020-10-04 11:12 | disposition home or self-care (01) ==
PROVIDERS: Emergency Provider Family Medicine
DX: K59.00 Constipation, unspecified (principal); F17.210 Nicotine dependence, cigarettes, uncomplicated
CPT/HCPCS: 74177; 80053; 81003; 83690; 85025; 96361; 96374; 96375; 99283; J1885; J2405; J7030; Q9967

== ENCOUNTER 2021-03-30 02:17 | Emergency (ER) | payer MEDICAID, SELFPAY ==
[2021-03-30 02:26] VITALS: PULSE 72; RESP 17; TEMP 36.7; O2SAT 96; BMI 25.0
--- NOTE | 2021-03-30 02:50 | ED_ITS ---
Documented by User: KALLIE Ballard 03/30/21 03:28 HPI - Nausea/Vomiting/Diarrhea General: Chief complaint: Nausea/Vomiting/Diarrhea Stated complaint: n/v Time Seen by Provider: 03/30/21 02:52 History of Present Illness: HPI Narrative: 41-year-old male patient comes in with nausea and vomiting. Patient is retching actively on my initial exam. Patient's has good color and appears well. Patient reports that he do not know when the illness started and provides no history. Patient denies any medication use. Patient does have a history of depression and methamphetamine abuse. Associated nausea: Yes Associated symtoms: Reports nausea Review of Systems General: Reports: 10 or more systems reviewed and unremarkable except in HPI and below GI: Reports: abdominal pain, nausea and vomiting PFSH ED PFSH: Social History Smoking and tobacco status: current every day smoker Physical Exam Const: COMMON NORMALS: no acute distress and patient oriented x3 GENERAL APPEARANCE: cooperative HENMT: COMMON NORMALS: normocephalic and Normal external nose present HEAD & SCALP: normal to inspection and normocephalic NOSE: Normal external nose present MOUTH: Normal oral and palatal mucosa present THROAT: posterior oropharynx normal Eye: GENERAL EYE: appearance normal, both eyes and all related structures Neck/C-Spine: COMMON NORMALS: full ROM Lymph: LYMPHATIC: no lymphadenopathy noted Chest: COMMONS NORMALS: normal inspection of the chest Resp: COMMON NORMALS: normal respiratory effort EFFORT & INSPECTION: Yes able to speak in complete sentences Cardio: COMMON NORMALS: regular rate and regular rhythm RATE: regular rate RHYTHM: regular rhythm GI: COMMON NORMALS: Soft to palpation and non-tender PALPATION: Yes Soft to palpation Back/Pelvis: COMMON NORMALS: thoracic and lumbar spine normal to inspection Extremity: COMMON NORMALS: normal to inspection Neuro: COMMON NORMALS: patient oriented x3 and moves all extremities Psych: COMMON NORMALS: mental status grossly normal and cooperative Skin: COMMON NORMALS: no rashes or lesions noted GENERAL SKIN EXAM: no rashes or lesions noted Course ED course: 326, reviewed patient with Dr. Guzman who agreed to assume care on my leave of shift. Vital Signs: Vital signs: Vital Signs Temperature 98.1 F 03/30/21 02:26 Pulse Rate 86 03/30/21 04:05 Respiratory Rate 17 03/30/21 04:05 Blood Pressure 130/89 03/30/21 04:05 Pulse Oximetry 99 03/30/21 04:05 MDM - Nausea/Vomiting/Diarrhea Lab Data: Labs: Lab Results 03/30/21 03/30/21 Range/Units 03:20 03:20 WBC 9.6 (4.0-10.0) 10^3/ uL RBC 4.49 (4.1-5.3) 10^6/u L Hgb 13.9 (11.7-16.6) g/dL Hct 41.4 L (42.0-52.0) % MCV 92.2 (80-94) fL MCH 31.0 (28.0-34.0) pg MCHC 33.6 (30.0-36.0) g/dL RDW 13.0 (12.1-15.1) % Plt Count 232 (130-400) 10^3/c mm MPV 11.7 H (7.4-10.4) fL Neut % (Auto) 67.2 % Lymph % (Auto) 21.6 % [place] % (Auto) 6.6 % Eos % (Auto) 3.5 % Baso % (Auto) 0.8 % Neut # (Auto) 6.43 (1.8-7.7) 10^3/u L Lymph # (Auto) 2.1 (0.8-4.8) 10^3/u L [place] # (Auto) 0.6 (0.2-0.9) 10^3/u L Eos # (Auto) 0.3 (0.0-0.8) 10^3/u L Baso # (Auto) 0.1 (0.0-0.1) 10^3/u L Nucleated RBC % (a uto) 0 % Nucleated RBCs # 0.0 /100WBC Sodium 137 (136-145) mmol/L Potassium 3.5 (3.5-5.1) mmol/L Chloride 98 (98-107) mmol/L Carbon Dioxide 26 (22-29) mmol/L Anion Gap 16.5 (5-19) BUN 11 (6-20) mg/dL Creatinine 0.7 (0.7-1.2) mg/dL GFR Calculation 125.5 (90-130) mL/min Glucose 123 H (65-115) mg/dL Calculated Osmolal ity 285 (285-295) mOsm/k g Calcium 8.8 (8.5-10.5) mg/dL Total Bilirubin 0.3 (0.15-1.2) mg/dL AST 16 (0-40) U/L ALT 14 (0-41) U/L Alkaline Phosphata se 61 (40-130) IU/L Total Protein 6.2 L (6.6-8.7) g/dL Albumin 4.1 (3.5-5.2) g/dL Globulin 2.1 (1.3-4.6) g/dL Lipase 100 H (13-60) U/L Discharge Plan Discharge Prescriptions: No Action A Mix Of Meds See Rx Instructions .ROUTE .COMPLEX RF: 0 ibuprofen 200 mg Tablet 200 - 800 mg PO PRN RF: 0 dicyclomine 10 mg capsule 10 mg PO TID Qty: 20 RF: 0 magnesium citrate Solution 150 ml PO BID PRN (Reason: constipation) Qty: 296 RF: 0 Sign Out Sign Out Data: Patient Sign Out occurred on 03/30/21 at 03:31. Patient's care was discussed, and care was transferred from Cesar Thurman to Jayme Guzman MD. Sign Out Comment: Ordered abdominal pain labs CBC, CMP, lipase, and urinalysis. Ordered 1 L of IV fluid and 5 mg of Haldol for retching and nausea and vomiting. Last updated by Cesar Thurman FNP at 03/30/21 03:29 Coding Level of Care Code ED Social Sciences Professor for Chg Fwd Exam Comprehensive Documented by User: Jayme Guzman MD 03/30/21 04:37 HPI - Nausea/Vomiting/Diarrhea General: Chief complaint: Nausea/Vomiting/Diarrhea Stated complaint: n/v Time Seen by Provider: 03/30/21 02:52 PFSH ED PFSH: Social History (Reviewed 10/05/20 @ 16:51 by MILEY Cardenas Smoking and tobacco status: current every day smoker Physical Exam GI: OTHER: +mild epigastric tenderness to palpation Course Vital Signs: Vital signs: Vital Signs Temperature 98.1 F 03/30/21 02:26 Pulse Rate 86 03/30/21 04:05 Respiratory Rate 17 03/30/21 04:05 Blood Pressure 130/89 03/30/21 04:05 Pulse Oximetry 99 03/30/21 04:05 MDM - Nausea/Vomiting/Diarrhea MDM Narrative: Medical decision making narrative: 41M w/ hx of meth use presents to the ED w/ N/V and epigastric abdominal tenderness. On exam, patient initially on arrival is mildly distressed. Has mild tenderness palpation in the midepigastric area. Patient received Haldol in the emergency room appears to be clinically improving. Patient is now able to tolerate p.o. without any difficulty. Patient received 1 L fluid. Lipase noted to be mildly elevated at 100. No suspicion of acute pancreatitis today. Symptoms likely is consistent with (from drug use. No suspicion for acute intra-abdominal pathologies. On reassessment, vitals appears to be within normal limit. Disposition: Discharge. Patient is given strict return precaution for any worsening pain, fever/chills, nausea vomiting, any new or concerning complaints. Lab Data: Labs: Lab Results 03/30/21 03/30/21 Range/Units 03:20 03:20 WBC 9.6 (4.0-10.0) 10^3/ uL RBC 4.49 (4.1-5.3) 10^6/u L Hgb 13.9 (11.7-16.6) g/dL Hct 41.4 L (42.0-52.0) % MCV 92.2 (80-94) fL MCH 31.0 (28.0-34.0) pg MCHC 33.6 (30.0-36.0) g/dL RDW 13.0 (12.1-15.1) % Plt Count 232 (130-400) 10^3/c mm MPV 11.7 H (7.4-10.4) fL Neut % (Auto) 67.2 % Lymph % (Auto) 21.6 % [place] % (Auto) 6.6 % Eos % (Auto) 3.5 % Baso % (Auto) 0.8 % Neut # (Auto) 6.43 (1.8-7.7) 10^3/u L Lymph # (Auto) 2.1 (0.8-4.8) 10^3/u L [place] # (Auto) 0.6 (0.2-0.9) 10^3/u L Eos # (Auto) 0.3 (0.0-0.8) 10^3/u L Baso # (Auto) 0.1 (0.0-0.1) 10^3/u L Nucleated RBC % (a uto) 0 % Nucleated RBCs # 0.0 /100WBC Sodium 137 (136-145) mmol/L Potassium 3.5 (3.5-5.1) mmol/L Chloride 98 (98-107) mmol/L Carbon Dioxide 26 (22-29) mmol/L Anion Gap 16.5 (5-19) BUN 11 (6-20) mg/dL Creatinine 0.7 (0.7-1.2) mg/dL GFR Calculation 125.5 (90-130) mL/min Glucose 123 H (65-115) mg/dL Calculated Osmolal ity 285 (285-295) mOsm/k g Calcium 8.8 (8.5-10.5) mg/dL Total Bilirubin 0.3 (0.15-1.2) mg/dL AST 16 (0-40) U/L ALT 14 (0-41) U/L Alkaline Phosphata se 61 (40-130) IU/L Total Protein 6.2 L (6.6-8.7) g/dL Albumin 4.1 (3.5-5.2) g/dL Globulin 2.1 (1.3-4.6) g/dL Lipase 100 H (13-60) U/L Discharge Plan Discharge Prescriptions: No Action A Mix Of Meds See Rx Instructions .ROUTE .COMPLEX RF: 0 ibuprofen 200 mg Tablet 200 - 800 mg PO PRN RF: 0 dicyclomine 10 mg capsule 10 mg PO TID Qty: 20 RF: 0 magnesium citrate Solution 150 ml PO BID PRN (Reason: constipation) Qty: 296 RF: 0 Sign Out Sign Out Data: Patient Sign Out occurred on 03/30/21 at 03:31. Patient's care was discussed, and care was transferred from Cesar Thuramn to Jayme Guzman MD. Sign Out Comment: Ordered abdominal pain labs CBC, CMP, lipase, and urinalysis. Ordered 1 L of IV fluid and 5 mg of Haldol for retching and nausea and vomiting. Last updated by Cesar Thurman, KALLIE at 03/30/21 03:29 Coding Level of Care Code ED Social Sciences Professor for Chg Fwd Exam Comprehensive
[2021-03-30 03:20] VITALS: BP 128/83; PULSE 56; RESP 18; O2SAT 100
[2021-03-30 03:26] LABS: Basophils # 0.1 10^3/uL (0.0-0.1); Basophils % 0.8 %; Eosinophils # 0.3 10^3/uL (0.0-0.8); Eosinophils % 3.5 %; Hematocrit 41.4 % (42.0-52.0); Hemoglobin 13.9 g/dL (11.7-16.6); Lymphocytes # 2.1 10^3/uL (0.8-4.8); Lymphocytes % 21.6 %; Mean Corpuscular HGB Conc 33.6 g/dL (30.0-36.0); Mean Corpuscular Volume 92.2 fL (80-94); Mean Platelet Volume 11.7 fL (7.4-10.4); Monocytes # 0.6 10^3/uL (0.2-0.9); Monocytes % 6.6 %; Neutrophils # 6.43 10^3/uL (1.8-7.7); Neutrophils % 67.2 %; Nucleated Red Blood Cells % 0 %; Platelet Count 232 10^3/cmm (130-400); Red Blood Count 4.49 10^6/uL (4.1-5.3); White Blood Count 9.6 10^3/uL (4.0-10.0)
[2021-03-30] MEDS: sodium chloride 0.9% 1,000 ML 999 ML IV (03:27)
[2021-03-30] MEDS: haloperidol inj 5 mg/mL INJ 1 mL IVP (03:28)
[2021-03-30 03:54] LABS: Alanine Aminotransferase 14 U/L (0-41); Albumin Level 4.1 g/dL (3.5-5.2); Alkaline Phosphatase 61 IU/L (40-130); Anion Gap 16.5 (5-19); Aspartate Amino Transferase 16 U/L (0-40); Blood Urea Nitrogen 11 mg/dL (6-20); Calcium 8.8 mg/dL (8.5-10.5); Carbon Dioxide 26 mmol/L (22-29); Chloride 98 mmol/L (98-107); Globulin 2.1 g/dL (1.3-4.6); Glomerular Filtration Rate 125.5 mL/min (90-130); Glucose 123 mg/dL (65-115); Lipase 100 U/L (13-60); Osmolality Calculated 285 mOsm/kg (285-295); Potassium 3.5 mmol/L (3.5-5.1); Sodium 137 mmol/L (136-145); Total Bilirubin 0.3 mg/dL (0.15-1.2); Total Protein 6.2 g/dL (6.6-8.7)
[2021-03-30 04:05] VITALS: BP 130/89; PULSE 86; RESP 17; O2SAT 99
[2021-03-30] MEDS: capsaicin 0.025% cream 60 gm 1 APPLIC TOPICAL (04:45)
[2021-03-30 04:53] VITALS: BP 129/79; PULSE 87; RESP 17; O2SAT 98
== END 2021-03-30 04:56 | disposition home or self-care (01) ==
PROVIDERS: Nurse Practitioner Family; Emergency Provider Emergency Medicine
DX: R11.2 Nausea with vomiting, unspecified (principal); R19.7 Diarrhea, unspecified; R10.9 Unspecified abdominal pain; F17.200 Nicotine dependence, unspecified, uncomplicated
CPT/HCPCS: 80053; 83690; 85025; 96361; 96374; 99284; J1630; J7030

== ENCOUNTER 2021-04-07 10:39 | Inpatient (IN) | payer MEDICAID, SELFPAY ==
[2021-04-07 10:41] VITALS: BP 135/92; PULSE 97; RESP 18; TEMP 36.6; O2SAT 96; BMI 20.3
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
[2021-04-07 10:59] VITALS: RESP 17
[2021-04-07 11:58] LABS: Basophils % 0.5 %; Eosinophils # 0.2 10^3/uL (0.0-0.8); Hematocrit 41.9 % (42.0-52.0); Lymphocytes # 2.9 10^3/uL (0.8-4.8); Lymphocytes % 47.8 %; Mean Corpuscular HGB Conc 33.4 g/dL (30.0-36.0); Mean Corpuscular Hemoglobin 30.9 pg (28.0-34.0); Mean Corpuscular Volume 92.5 fl (80-94); Monocytes # 0.5 10^3/uL (0.2-0.9); Monocytes % 8.8 %; Neutrophils # 2.32 10^3/uL (1.8-7.7); Neutrophils % 38.7 %; Nucleated Red Blood Cells % 0 %; Platelet Count 257 10^3/cmm (130-400); Red Blood Count 4.53 10^6/uL (4.1-5.3)
[2021-04-07 12:01] VITALS: BP 123/71; PULSE 73; RESP 18; TEMP 36.7; O2SAT 95
[2021-04-07 12:24] LABS: Alanine Aminotransferase 19 U/L (0-41); Albumin Level 3.9 g/dL (3.5-5.2); Alkaline Phosphatase 61 IU/L (40-130); Anion Gap 13.3 (5-19); Aspartate Amino Transferase 24 U/L (0-40); Blood Urea Nitrogen 10 mg/dL (6-20); Calcium 8.5 mg/dL (8.5-10.5); Carbon Dioxide 25 mmol/L (22-29); Chloride 103 mmol/L (98-107); Globulin 2.4 g/dL (1.3-4.6); Glomerular Filtration Rate 107.6 mL/min (90-130); Glucose 83 mg/dL (65-115); Osmolality Calculated 282 mOsm/kg (285-295); Potassium 4.3 mmol/L (3.5-5.1); Sodium 137 mmol/L (136-145); Total Bilirubin 0.3 mg/dL (0.15-1.2); Total Protein 6.3 g/dL (6.6-8.7)
[2021-04-07 12:31] LABS: Acetaminophen < 5.0 ug/mL (10-30); Alcohol Level < 10 mg/dL (0-10); Salicylate < 0.3 mg/dL (3-10)
[2021-04-07 13:21] LABS: Amphetamines Screen Urine Positive (Negative); Barbiturates Screen Urine Negative (Negative); Benzodiazepines Screen Urine Negative (Negative); Cocaine Screen Urine Negative (Negative); Opiate Screen Urine Negative (Negative); PCP Screen Urine Negative (Negative); THC Screen Urine Positive (Negative)
[2021-04-07 20:28] VITALS: RESP 20
[2021-04-08 06:07] VITALS: RESP 17; TEMP 36.6
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
[2021-04-08 18:14] VITALS: BP 108/66; PULSE 56; RESP 12; TEMP 36.7; O2SAT 99
[2021-04-08 20:37] VITALS: BP 123/77; PULSE 94; RESP 22; TEMP 37.4; O2SAT 95
[2021-04-09 06:00] VITALS: BP 98/64; PULSE 54; RESP 16; TEMP 36.6; O2SAT 97
[2021-04-09 13:56] VITALS: BP 100/60; PULSE 73; RESP 17; TEMP 36.7; O2SAT 99
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
[2021-04-09 19:51] VITALS: BP 111/73; PULSE 55; RESP 23; TEMP 36.9; O2SAT 100
[2021-04-10 06:00] VITALS: BP 112/67; PULSE 50; RESP 18; TEMP 36.6; O2SAT 95
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
--- NOTE | 2021-04-10 10:54 | NPU.GN ---
[facility] Topic:Two truth and a lie General Mood of Group: Refused group again today.
[2021-04-10 14:00] VITALS: BP 101/59; PULSE 65; RESP 18; TEMP 36.7; O2SAT 96
--- NOTE | 2021-04-10 14:36 | PC.NURSE ---
MED REFUSAL PT REFUSED DAILY ABILIFY 10 MG. PT ANGRILY STATES THAT HE TOLD THE PSYCHIATRIST THAT HE WILL ABSOLUTELY NOT BE TAKING IT. PT WAS EDUCATED BY BUDGET EXAMINER ON BENEFITS OF MED COMPLIANCE BUT PT AGAIN REFUSED THE MEDICATION. DR. YO NOTIFIED.
[2021-04-10 21:21] VITALS: RESP 19
--- NOTE | 2021-04-10 21:21 | PC.NURSE ---
patient refused vitals
[2021-04-11 06:00] VITALS: RESP 17
--- NOTE | 2021-04-11 06:39 | PC.NURSE ---
Patient refused vitals
--- NOTE | 2021-04-11 10:49 | PC.NURSE ---
MEDS PT REFUSED HIS MEDS, VERY IRRITABLE, WILL CONTINUE TO MONITOR.
[2021-04-11 14:00] VITALS: RESP 18
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
[2021-04-11 20:19] VITALS: BP 106/74; PULSE 88; RESP 24; TEMP 36.8; O2SAT 99
[2021-04-11] MEDS: trazodone 50 mg Tablet PO (20:54)
--- NOTE | 2021-04-12 13:39 | NPU.GN ---
[facility] Topic: Communication General Mood of Group: Patient refused again today to go to group.
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
[2021-04-12 19:10] VITALS: BP 106/74; PULSE 88; RESP 24; TEMP 36.8; O2SAT 99
--- NOTE | 2021-04-12 19:43 | PC.NURSE ---
behavior Pt was scheduled to discharge.Pt tearful in the dayroom at time to discharge, began to sob, states, I don't have anywhere to go. I thought I could go to SOC. Pt voluntarily signed into the unit. He would like to figure out where to stay in the mean time. Per Dr Arroyo, Patient was driving request to be released. It is ok to allow him to stay.
[2021-04-12] MEDS: trazodone 50 mg Tablet PO (21:33)
[2021-04-12 22:00] VITALS: BP 108/71; PULSE 66; RESP 18; TEMP 37; O2SAT 97
[2021-04-12] MEDS: hyDROXYzine 25 mg Capsule 50 MG PO (22:04)
[2021-04-13 06:00] VITALS: RESP 15
[2021-04-13] MEDS: ARIPiprazole 10 mg Tablet PO (10:35)
[2021-04-13] MEDS: ondansetron 4 MG Tablet PO (10:35)
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
[2021-04-13 12:16] VITALS: RESP 15
== END 2021-04-13 14:40 | disposition home or self-care (01) | DRG 881 ==
LOC: ER 11:54 → NP 12:17
PROVIDERS: Physician Assistant; Admitting Provider Psychiatry & Neurology Psychiatry; Visit Provider Psychiatry & Neurology Psychiatry
DX: F32.9 Major depressive disorder, single episode, unspecified (principal); R45.851 Suicidal ideations; R45.850 Homicidal ideations; F63.81 Intermittent explosive disorder; F95.2 Tourette's disorder; Z91.14 Patient's other noncompliance with medication regimen; F12.90 Cannabis use, unspecified, uncomplicated; F15.10 Other stimulant abuse, uncomplicated; F17.210 Nicotine dependence, cigarettes, uncomplicated; F41.9 Anxiety disorder, unspecified; Z63.0 Problems in relationship with spouse or partner
CPT/HCPCS: 80053; 80306; 80307; 85025; 99285; Q0162

== ENCOUNTER 2021-12-07 10:33 | Emergency (ER) | payer MEDICAID, SELFPAY ==
[2021-12-07 10:42] VITALS: BP 123/87; PULSE 106; RESP 18; TEMP 36.7; O2SAT 99; BMI 22.7
--- NOTE | 2021-12-07 10:53 | PC.NURSE ---
Patient instructed to come to triage desk with any questions, concerns or any change in condition. FAST exam appropriate upon arrival.
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
== END 2021-12-07 12:10 | disposition home or self-care (01) ==
PROVIDERS: Emergency Provider Physician Assistant
DX: K04.7 Periapical abscess without sinus (principal); F17.210 Nicotine dependence, cigarettes, uncomplicated; K02.9 Dental caries, unspecified
CPT/HCPCS: 99281

== ENCOUNTER 2022-07-15 12:16 | Emergency (ER) | payer MEDICAID, SELFPAY ==
[2022-07-15 12:35] VITALS: BP 138/54; PULSE 85; RESP 16; TEMP 37; O2SAT 98
[2022-07-15 13:15] LABS: Basophils % 0.4 %; Eosinophils # 0.1 10^3/uL (0.0-0.8); Eosinophils % 0.5 %; Hematocrit 45.7 % (42.0-52.0); Hemoglobin 15.9 g/dL (11.7-16.6); Lymphocytes # 3.8 10^3/uL (0.8-4.8); Lymphocytes % 37.3 %; Mean Corpuscular HGB Conc 34.8 g/dL (30.0-36.0); Mean Corpuscular Hemoglobin 30.7 pg (28.0-34.0); Mean Corpuscular Volume 88.2 fl (80-94); Mean Platelet Volume 9.8 fL (7.4-10.4); Monocytes # 0.8 10^3/uL (0.2-0.9); Monocytes % 8.3 %; Neutrophils # 5.37 10^3/uL (1.8-7.7); Nucleated Red Blood Cells % 0 %; Platelet Count 311 10^3/cmm (130-400); Red Blood Count 5.18 10^6/uL (4.1-5.3); Red Cell Distribution Width 12.2 % (12.1-15.1); White Blood Count 10.1 10^3/uL (4.0-10.0)
[2022-07-15 13:37] LABS: Alanine Aminotransferase 17 U/L (0-41); Albumin Level 4.4 g/dL (3.5-5.2); Alkaline Phosphatase 70 U/L (40-130); Anion Gap 16.9 (5-19); Aspartate Amino Transferase 19 U/L (0-40); Blood Urea Nitrogen 18 mg/dL (6-20); Carbon Dioxide 29 mmol/L (22-29); Chloride 87 mmol/L (98-107); Globulin 2.8 g/dL (1.3-4.6); Glomerular Filtration Rate 93.5 mL/min (90-130); Glucose 121 mg/dL (65-115); Lipase 31 U/L (13-60); Osmolality Calculated 273 mOsm/kg (285-295); Sodium 130 mmol/L (136-145); Total Bilirubin 0.7 mg/dL (0.15-1.2); Total Protein 7.2 g/dL (6.6-8.7)
[2022-07-15 13:44] LABS: Potassium 2.9 mmol/L (3.5-5.1)
== END 2022-07-15 14:57 | disposition left against medical advice (07) ==
PROVIDERS: Emergency Medicine; Emergency Provider Family Medicine
DX: Z53.21 Procedure and treatment not carried out due to patient leaving prior to being seen by health care provider (principal); R11.2 Nausea with vomiting, unspecified
CPT/HCPCS: 80053; 83690; 85025; 99283

== ENCOUNTER 2022-08-29 07:04 | Emergency (ER) | payer MEDICAID, SELFPAY ==
[2022-08-29 07:35] VITALS: BP 126/87; PULSE 95; RESP 18; TEMP 36.6; O2SAT 98; BMI 21.1
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
== END 2022-08-29 08:03 | disposition home or self-care (01) ==
PROVIDERS: Emergency Provider Nurse Practitioner Family
DX: K04.7 Periapical abscess without sinus (principal); F17.210 Nicotine dependence, cigarettes, uncomplicated
CPT/HCPCS: 99283

== ENCOUNTER 2022-10-25 13:47 | Emergency (ER) | payer MEDICAID, SELFPAY ==
[2022-10-25 14:00] VITALS: BP 132/86; PULSE 89; RESP 20; TEMP 37; O2SAT 97
--- NOTE | 2022-10-25 14:11 | W.ED.DENTAL ---
HPI - Dental/Oral General: Chief complaint: Dental/Oral Stated complaint: tooth pain Time Seen by Provider: 10/25/22 14:08 History of Present Illness: Patient is a 42-year-old male comes to the ED with dental pain. Patient dates he has had dental pain on and off for a while now and was seen here in the ED for same complaint back on August 29, 2022. He has not been able to see a dentist. Pain started worsening 2 days ago. Pain is located in the right upper molars. Pain radiates to the right side of his face. Denies any other symptoms. Associated symptoms: Denies fever(s) or odynophagia Review of Systems Const: Denies: fever(s), chills or fatigue Eyes: Denies: change in vision or eye discomfort ENMT: Reports: dental pain; Denies: throat pain, odynophagia, nasal discharge or nasal congestion Card: Denies: chest pain, palpitations, edema, swelling of feet/ankles, dyspnea on exertion or orthopnea Resp: Denies: dyspnea, productive cough or non-productive cough GI: Denies: abdominal pain, nausea, vomiting, diarrhea, constipation or hematochezia : Denies: flank pain, difficulty urinating, dysuria or hematuria Musc: Denies: neck pain, back pain or extremity swelling Skin/Breast: Denies: rash or new lesions Neuro: Denies: headache(s), numbness in extremities or weakness in extremities [facility] ED PFSH: Medical History (Updated 10/26/22 @ 07:09 by ROYAL Phoenix) No pertinent family history Surgical History (Updated 10/26/22 @ 07:09 by ROYAL Phoenix) No pertinent past surgical history Social History Smoking and tobacco status: current every day smoker Physical Exam Const: COMMON NORMALS: no acute distress, patient oriented x3 and alert HENMT: COMMON NORMALS: normocephalic HEAD & SCALP: normocephalic FACE & SINUS: no ecchymosis, no erythema and no edema MOUTH: Normal oral and palatal mucosa present TEETH & GINGIVA: Yes caries and Yes poor dentition THROAT: posterior oropharynx normal and uvula midline Neck/C-Spine: COMMON NORMALS: supple GENERAL: Yes normal visual inspection Resp: COMMON NORMALS: normal respiratory effort, No retractions, No use of accessory muscles and clear to auscultation bilaterally AUSCULTATION: clear to auscultation bilaterally Cardio: COMMON NORMALS: regular rate, regular rhythm, S1 normal heart sound present, S2 normal heart sound present, No gallops present (Cardio), No clicks present (Cardio), No murmurs present (Cardio) and Peripheral pulses 2+ throughout RATE: regular rate RHYTHM: regular rhythm HEART SOUNDS: S1 normal heart sound present and S2 normal heart sound present PERIPHERAL PULSES: Peripheral pulses 2+ throughout GI: COMMON NORMALS: Normal to inspection, nondistended, normoactive bowel sounds present, Soft to palpation, non-tender and no masses PALPATION: Yes Soft to palpation : COMMON NORMALS: Yes no CVA tenderness BLADDER/KIDNEY EXAM: Yes no CVA tenderness Back/Pelvis: COMMON NORMALS: no CVA tenderness Extremity: COMMON NORMALS: normal to inspection Neuro: COMMON NORMALS: patient oriented x3 SENSORIUM/ORIENTATION: Yes alert GAIT: Yes Normal gait present Skin: GENERAL SKIN EXAM: dry skin Course Vital Signs: Vital signs: Vital Signs Temperature 98.6 F 10/25/22 14:00 Pulse Rate 89 10/25/22 14:00 Respiratory Rate 20 H 10/25/22 14:00 Blood Pressure 132/86 10/25/22 14:00 Pulse Oximetry 97 10/25/22 14:00 Oxygen Delivery Me thod 10/25/22 14:00 MDM - Dental/Oral Medical Decision Making Patient is a 42-year-old male comes to the ED with dental pain. Patient dates he has had dental pain on and off for a while now and was seen here in the ED for same complaint back on August 29, 2022. He has not been able to see a dentist. Pain started worsening 2 days ago. Pain is located in the right upper molars. Pain radiates to the right side of his face. Denies any other symptoms. Vitals stable. Patient appears in no acute distress or pain. Rest of exam is benign. He was given a dose of tramadol and clindamycin while here in the ED. He was stable for discharge home and told to contact dentist for further treatment of dental pain. He was sent with a prescription for ibuprofen 800 mg and clindamycin. Patient understood and agreed with plan. Discharge Plan Discharge Patient Disposition: Home Clinical Impression: Pain, dental Condition: Stable Prescriptions: New Cleocin HCl 150 mg capsule 300 mg PO QID 7 Days Qty: 56 0RF ibuprofen 800 mg tablet 800 mg PO Q8H PRN (Reason: pain) Qty: 20 0RF Discharge Orders: Discharge ED (Routine); Ordered 10/25/22 Ordered By: Augie Darden Discharge Diet: Regular Discharge Activity: Increase activity as tolerated Patient Instructions: Toothache (ED) Activity Restrictions/Additional Instructions: Follow-up with dentist as soon as possible to have dental pain treated. Take medications as prescribed. Return to the ER or your medical provider if condition worsens. Please read and understand discharge instructions. Thank you for choosing [facility] for your healthcare needs today. Please realize this is an emergency room and that we are providing you with a medical screening exam and this may not be complete and all inclusive of all the testing and or work up that you may need to determine your ailment or severity of your illness. It is very important that you follow up as instructed or that you return to the Emergency Department should you have concerns or if your condition changes or worsens in any way. Coding Level of Care Code ED Activities Assistant for Linnea Couch
[2022-10-25] MEDS: clindamycin 150 mg Capsule 300 MG PO (14:21)
[2022-10-25] MEDS: TRAMadol 50 mg Tablet 100 MG PO (14:21)
--- NOTE | 2022-10-29 14:47 | DCPLANNER ---
10.26.22 - patient was called due to no primary care physician - voicemail was left for patient to return phone call 10.27.22 - patient was called due to no primary care physician - voicemail was left for patient to return phone call
== END 2022-10-25 14:36 | disposition home or self-care (01) ==
PROVIDERS: Emergency Provider Physician Assistant
DX: K08.89 Other specified disorders of teeth and supporting structures (principal); F17.200 Nicotine dependence, unspecified, uncomplicated
CPT/HCPCS: 99283

== ENCOUNTER → 2023-04-15 14:27 | Outpatient (BNVA) | payer OTHER, MEDICAID, SELFPAY | PROVIDERS: PCP Clinical Nurse Specialist Adult Health; Visit Provider Clinical Nurse Specialist Adult Health | DX: D23.4 Other benign neoplasm of skin of scalp and neck (principal); K21.9 Gastro-esophageal reflux disease without esophagitis; M65.30 Trigger finger, unspecified finger; D69.9 Hemorrhagic condition, unspecified | CPT/HCPCS: 85025; 85610 ==

== ENCOUNTER → 2023-04-16 13:57 | Outpatient (BNVA) | payer OTHER, MEDICAID, SELFPAY | PROVIDERS: PCP Clinical Nurse Specialist Adult Health; Visit Provider Clinical Nurse Specialist Adult Health | DX: D69.9 Hemorrhagic condition, unspecified (principal) | CPT/HCPCS: 80053 ==

== ENCOUNTER 2024-01-10 12:10 | Emergency (ER) | payer OTHER, MEDICAID, SELFPAY ==
[2024-01-10 12:17] VITALS: BP 105/78; PULSE 90; RESP 18; TEMP 36.9; O2SAT 98; BMI 21.9
--- NOTE | 2024-01-10 12:21 | ED_ITS ---
HPI - Anxiety 2 General: Chief Complaint: Anxiety Stated Complaint: ROMA HAND CRAMPING Time Seen by Provider: 01/10/24 12:11 Source: patient and EMS Mode of arrival: EMS Limitations: no limitations History of Present Illness: 43-year-old male states that when he wok e up this morning he is having severe anxiety states that he is having cramping in his hands feels like his hands just keep moving and having these cramping pains in his hands. He appears extremely anxious here he denies any chest pain denies any weakness denies any vomiting or fever Associated symptoms: Deny chest pain, chills, fever(s), headache(s), nausea or vomiting Review of Systems 2 Const: Denies: fever(s), chills, body aches or change in appetite ENMT: Denies: throat pain or dental pain Card: Denies: chest pain Resp: Denies: dyspnea GI: Denies: abdominal pain, nausea, vomiting or diarrhea Musc: Denies: neck pain or back pain Skin/Breast: Denies: rash Neuro: Denies: headache(s) Psych: Reports: anxiety PFSH ED 2 PFSH: Medical History (Updated 01/10/24 @ 13:23 by Pb Kingsley MD) Gastroesophageal reflux disease Intermittent explosive disorder Tourette syndrome Marijuana abuse Tobacco dependence No pertinent family history Homicidal ideation Suicidal ideation Acute depression Methamphetamine abuse Surgical History No pertinent past surgical history Family History Denies family history of Clotting disorder Anesthesia complication Bleeding disorder Social History (Updated 04/15/23 @ 15:00 by Tuan Hartman NP) Smoking and tobacco/nicotine status: current every day tobacco/nicotine user cigarettes Packs smoked per day: 1 Years cigarettes smoked: 20 Alcohol intake: current Alcohol intake frequency: few times a month Substance/Drug Use: current Substance/Drug use frequency: daily Other substance/drug use details: formerly used meth Physical Exam 2 Const: COMMON NORMALS: patient oriented x3 GENERAL APPEARANCE: anxious HENMT: COMMON NORMALS: normocephalic and atraumatic HEAD & SCALP: n ormocephalic and atraumatic Eye: COMMON NORMALS: Equal, round and reactive pupils present and EOMs intact bilaterally PUPIL: Yes Equal, round and reactive pupils present Neck/C-Spine: COMMON NORMALS: full ROM and supple Chest: COMMONS NORMALS: normal inspection of the chest and normal palpation of entire chest wall Resp: COMMON NORMALS: normal respiratory effort Cardio: COMMON NORMALS: regular rate, regular rhythm and No murmurs present (Cardio) RATE: regular rate RHYTHM: regular rhythm Extremity: COMMON NORMALS: normal to inspection and full ROM Neuro: COMMON NORMALS: patient oriented x3, moves all extremities and no focal motor deficits Psych: COMMON NORMALS: mental status grossly normal, Normal thought process present and cooperative THOUGHT PROCESS: Normal thought process present Skin: COMMON NORMALS: no rashes or lesions noted and no wounds GENERAL SKIN EXAM: no rashes or lesions noted Course 2 Vital Signs: Vital signs: Vital Signs Temperature 98.4 F 01/10/24 12:17 Pulse Rate 90 01/10/24 12:17 Respiratory Rate 18 01/10/24 12:17 Blood Pressure 105/78 01/10/24 12:17 Pulse Oximetry 98 01/10/24 12:17 Oxygen Delivery Me thod Room Air 01/10/24 12:17 MDM - Anxiety Medical Decision Making Patient presents here with an anxiety attack he feels much improved here after Ativan blood works normal he stable for discharge she is follow-up with PCP return if worsening. Medical Records I reviewed the patient's medical records. Lab Data I reviewed the patient's lab results. 01/10/24 11:50 01/10/24 11:50 Laboratory Results WBC 6.39 10^3/uL (3.29-11.43) 01/10/24 11:50 RBC 5.11 10^6/uL (3.85-5.65) 01/10/24 11:50 Hgb 15.80 g/dL (11.27-16.99) 01/10/24 11:50 Hct 47.2 % (37-53) 01/10/24 11:50 MCV 92.4 fl (82-101) 01/10/24 11:50 MCH 30.9 pg (27-33) 01/10/24 11:50 MCHC 33.5 g/dL (30-55) 01/10/24 11:50 RDW 13.2 % (12.1-15.1) 01/10/24 11:50 Plt Count 200 10^3/cmm (157-399) 01/10/24 11:50 MPV 11.7 fL (7.4-10.4) H 01/10/24 11:50 Neut % (Auto) 58.7 % 01/10/24 11:50 Lymph % (Auto) 32.1 % 01/10/24 11:50 Liberty % (Auto) 5.6 % 01/10/24 11:50 Eos % (Auto) 2.5 % 01/10/24 11:50 Baso % (Auto) 1.1 % 01/10/24 11:50 Neut # (Auto) 3.75 10^3/uL (1.8-7.7) 01/10/24 11:50 Lymph # (Auto) 2.1 10^3/uL (0.8-4.8) 01/10/24 11:50 Liberty # (Auto) 0.4 10^3/uL (0.2-0.9) 01/10/24 11:50 Eos # (Auto) 0.2 10^3/uL (0.0-0.8) 01/10/24 11:50 Baso # (Auto) 0.1 10^3/uL (0.0-0.1) 01/10/24 11:50 Nucleated RBC % (auto) 0 % 01/10/24 11:50 Nucleated RBCs # 0.0 /100WBC 01/10/24 11:50 Sodium 133 mmol/L (136-145) L 01/10/24 11:50 Potassium 3.9 mmol/L (3.5-5.1) 01/10/24 11:50 Chloride 96 mmol/L (98-107) L 01/10/24 11:50 Carbon Dioxide 23 mmol/L (22-29) 01/10/24 11:50 Anion Gap 17.9 (5-19) 01/10/24 11:50 BUN 15 mg/dL (6-20) 01/10/24 11:50 Creatinine 1.0 mg/dL (0.7-1.2) 01/10/24 11:50 GFR Calculation 82.3 mL/min (90-130) L 01/10/24 11:50 Glucose 107 mg/dL (65-115) 01/10/24 11:50 Calculated Osmolality 277 mOsm/kg (285-295) L 01/10/24 11:50 Calcium 9.3 mg/dL (8.5-10.5) 01/10/24 11:50 Total Bilirubin 0.5 mg/dL (0.15-1.2) 01/10/24 11:50 AST 20 U/L (0-40) 01/10/24 11:50 ALT 14 U/L (0-41) 01/10/24 11:50 Alkaline Phosphatase 76 U/L (40-130) 01/10/24 11:50 Total Protein 7.3 g/dL (6.6-8.7) 01/10/24 11:50 Albumin 4.2 g/dL (3.5-5.2) 01/10/24 11:50 Globulin 3.1 g/dL (1.3-4.6) 01/10/24 11:50 No radiology studies performed this visit Discharge Plan Discharge Patient Disposition: Home Clinical Impression: Acute anxiety Condition: Stable Prescriptions: No Action No Known Home Medications Discharge Orders: Discharge ED (Routine); Ordered 01/10/24 Ordered By: Pb Kingsley Referrals: Tuan Hartman SUGAR GRINDER [Primary Care Provider] - Discharge Diet: Advance as tolerated Discharge Activity: Resume usual activity Patient Instructions: Anxiety (ED) Coding Level of Care Code ED Pocket Closer for Linnea Couch
[2024-01-10 12:33] LABS: Basophils # 0.1 10^3/uL (0.0-0.1); Basophils % 1.1 %; Eosinophils # 0.2 10^3/uL (0.0-0.8); Eosinophils % 2.5 %; Hematocrit 47.2 % (37-53); Lymphocytes # 2.1 10^3/uL (0.8-4.8); Lymphocytes % 32.1 %; Mean Corpuscular HGB Conc 33.5 g/dL (30-55); Mean Corpuscular Hemoglobin 30.9 pg (27-33); Mean Corpuscular Volume 92.4 fl (82-101); Mean Platelet Volume 11.7 fL (7.4-10.4); Monocytes # 0.4 10^3/uL (0.2-0.9); Monocytes % 5.6 %; Neutrophils # 3.75 10^3/uL (1.8-7.7); Neutrophils % 58.7 %; Nucleated Red Blood Cells % 0 %; Platelet Count 200 10^3/cmm (157-399); Red Blood Count 5.11 10^6/uL (3.85-5.65); Red Cell Distribution Width 13.2 % (12.1-15.1); White Blood Count 6.39 10^3/uL (3.29-11.43)
[2024-01-10] MEDS: LORazepam 2 mg/mL INJ 10 mL MDV 1 MG IVP (12:36)
[2024-01-10 12:53] LABS: Alanine Aminotransferase 14 U/L (0-41); Albumin Level 4.2 g/dL (3.5-5.2); Alkaline Phosphatase 76 U/L (40-130); Anion Gap 17.9 (5-19); Aspartate Amino Transferase 20 U/L (0-40); Blood Urea Nitrogen 15 mg/dL (6-20); Calcium 9.3 mg/dL (8.5-10.5); Carbon Dioxide 23 mmol/L (22-29); Chloride 96 mmol/L (98-107); Creatinine Clr Calc Pharmacy 89.4592; Globulin 3.1 g/dL (1.3-4.6); Glomerular Filtration Rate 82.3 mL/min (90-130); Glucose 107 mg/dL (65-115); Osmolality Calculated 277 mOsm/kg (285-295); Potassium 3.9 mmol/L (3.5-5.1); Sodium 133 mmol/L (136-145); Total Bilirubin 0.5 mg/dL (0.15-1.2); Total Protein 7.3 g/dL (6.6-8.7)
[2024-01-10 13:42] VITALS: PULSE 64; O2SAT 100
== END 2024-01-10 13:43 | disposition home or self-care (01) ==
PROVIDERS: Emergency Provider Emergency Medicine; PCP Clinical Nurse Specialist Adult Health
DX: F41.9 Anxiety disorder, unspecified (principal); F95.2 Tourette's disorder; F17.210 Nicotine dependence, cigarettes, uncomplicated
CPT/HCPCS: 80053; 85025; 96374; 99284; J2060

== ENCOUNTER 2024-04-14 14:43 | Inpatient (IN) | payer OTHER, MEDICAID, SELFPAY ==
[2024-04-14 14:53] VITALS: BP 133/78; PULSE 80; RESP 16; TEMP 37.3; O2SAT 97; BMI 23.5
[2024-04-14 15:09] VITALS: BP 133/78; PULSE 80; RESP 16; TEMP 37.3; O2SAT 97
--- NOTE | 2024-04-14 15:09 | PC.NURSE ---
EFFEXOR AND HYDROXYZINE BOTTLES SITTING WITH THIS NURSES AT NURSES STATION. HYDROXYZINE BOTTLE IS EMPTY. EFFEXOR TOTAL 17 TABS, COUNTED WITH RADHA QUIROZ RN.
--- NOTE | 2024-04-14 15:25 | ED.C_ITS ---
HPI - Psych 2 General: Chief Complaint: Psychiatric Symptoms Stated Complaint: SI Time Seen by Provider: 04/14/24 14:55 Source: patient Mode of arrival: ambulatory Limitations: no limitations History of Present Illness: 44-year-old male is here with depression and anxiety states he has been under a lot of stress depression states has had a lot of emotional issues as well. States he has had thoughts of harming others but not actual homicidal thoughts he states that he mostly wants to hurt others. He states that he is very depressed but also denies suicidal ideation states that he wants to get help with her wants to voluntarily admitted to help with his depression and anxiety. Associated symptoms: Reports depression Related Data Home Medications Medication Instructions Recorded Confirmed No Known Home Medications 01/10/24 01/10/24 Allergies Allergy/AdvReac Type Severity Reaction Status Date / Time coconut Allergy Severe cannot Verified 04/15/23 14:11 breathe guanfacine [From Tenex] Allergy Unknown Verified 04/15/23 14:11 promethazine [From Phenergan] Allergy ADR-Nausea Verified 04/15/23 14:11 Review of Systems 2 Const: Denies: fever(s), chills, body aches or change in appetite ENMT: Denies: throat pain or dental pain Card: Denies: chest pain Resp: Denies: dyspnea GI: Denies: abdominal pain, nausea, vomiting or diarrhea Musc: Denies: neck pain or back pain Skin/Breast: Denies: rash Neuro: Denies: headache(s) Psych: Reports: anxiety and depression PFS ED 2 PFSH: Medical History (Updated 04/14/24 @ 15:27 by Pb Kingsley MD) Gastroesophageal reflux disease Intermittent explosive disorder Tourette syndrome Marijuana abuse Tobacco dependence No pertinent family history Homicidal ideation Suicidal ideation Acute depression Methamphetamine abuse Surgical History No pertinent past surgical history Family History Denies family history of Clotting disorder Anesthesia complication Bleeding disorder Social History (Updated 04/15/23 @ 15:00 by Tuan Hartman NP) Smoking and tobacco/nicotine status: current every day tobacco/nicotine user cigarettes Packs smoked per day: 1 Years cigarettes smoked: 20 Alcohol intake: current Alcohol intake frequency: few times a month Substance/Drug Use: current Substance/Drug use frequency: daily Other substance/drug use details: formerly used meth Physical Exam 2 Const: COMMON NORMALS: no acute distress, patient oriented x3 and healthy appearing HENMT: COMMON NORMALS: normocephalic and atraumatic HEAD & SCALP: n ormocephalic and atraumatic Neck/C-Spine: COMMON NORMALS: full ROM and supple Chest: COMMONS NORMALS: normal inspection of the chest Resp: COMMON NORMALS: normal respiratory effort Extremity: COMMON NORMALS: normal to inspection Neuro: COMMON NORMALS: patient oriented x3, moves all extremities and no focal motor deficits Psych: COMMON NORMALS: mental status grossly normal, Normal thought process present and cooperative MOOD & AFFECT: Yes depressed mood THOUGHT PROCESS: Normal thought process present Skin: COMMON NORMALS: no rashes or lesions noted and no wounds GENERAL SKIN EXAM: no rashes or lesions noted Course 2 Vital Signs: Vital signs: Vital Signs Temperature 99.1 F 04/14/24 15:09 Pulse Rate 80 04/14/24 15:09 Respiratory Rate 16 04/14/24 15:09 Blood Pressure 133/78 04/14/24 15:09 Pulse Oximetry 97 04/14/24 15:09 Oxygen Delivery Me thod Room Air 04/14/24 15:09 MDM - Psych Medical Decision Making Patient presents here with depression along with anxiety. Not actively suicidal but he is voluntarily wanting to get help I did speak to psychiatrist will admit for his depression Medical Records I reviewed the patient's medical records. Lab Data I reviewed the patient's lab results. 04/14/24 15:52 04/14/24 15:52 No radiology studies performed this visit Discharge Plan Discharge Patient Disposition: Admitted As Inpatient Admit Provider: Norman Anne Clinical Impression: Depression Condition: Stable Coding Level of Care Code ED Textile Conservator for Linnea Couch
[2024-04-14] MEDS: LORazepam 1 mg Tablet PO (15:37)
[2024-04-14 15:58] LABS: Basophils # 0.1 10^3/uL (0.0-0.1); Basophils % 0.5 %; Eosinophils # 0.2 10^3/uL (0.0-0.8); Eosinophils % 1.4 %; Hematocrit 44.4 % (37-53); Lymphocytes # 2.1 10^3/uL (0.8-4.8); Lymphocytes % 15.7 %; Mean Corpuscular HGB Conc 34.5 g/dL (30-55); Mean Corpuscular Hemoglobin 32.3 pg (27-33); Mean Corpuscular Volume 93.7 fl (82-101); Mean Platelet Volume 12.6 fL (7.4-10.4); Monocytes # 0.9 10^3/uL (0.2-0.9); Monocytes % 6.6 %; Neutrophils # 10.09 10^3/uL (1.8-7.7); Neutrophils % 75.3 %; Nucleated Red Blood Cells % 0 %; Platelet Count 185 10^3/cmm (157-399); Red Blood Count 4.74 10^6/uL (3.85-5.65); Red Cell Distribution Width 13.1 % (12.1-15.1); White Blood Count 13.41 10^3/uL (3.29-11.43)
[2024-04-14 16:10] VITALS: BP 118/71; PULSE 81; RESP 18; TEMP 37.2; O2SAT 96
--- NOTE | 2024-04-14 16:12 | PC.NURSE ---
Patient vocalized to this nurse multiple times that he does not want to see Dr. Arroyo from [facility]. He stated if I see Dr. Arroyo, I will go to custodial . I made sure the staff were aware in Neuropsych that the patient was very upset with Dr. Arroyo and the possible threat if he see's Dr. Arroyo.
[2024-04-14 16:19] LABS: Alanine Aminotransferase 16 U/L (0-41); Albumin Level 4.3 g/dL (3.5-5.2); Alkaline Phosphatase 74 U/L (40-130); Anion Gap 16.3 (5-19); Aspartate Amino Transferase 19 U/L (0-40); Blood Urea Nitrogen 15 mg/dL (6-20); Calcium 9.1 mg/dL (8.5-10.5); Carbon Dioxide 26 mmol/L (22-29); Chloride 101 mmol/L (98-107); Creatinine Clr Calc Pharmacy 82.7501; Globulin 2.9 g/dL (1.3-4.6); Glomerular Filtration Rate 73.4 mL/min (90-130); Glucose 97 mg/dL (65-115); Osmolality Calculated 289 mOsm/kg (285-295); Potassium 4.3 mmol/L (3.5-5.1); Sodium 139 mmol/L (136-145); Total Bilirubin 0.3 mg/dL (0.15-1.2); Total Protein 7.2 g/dL (6.6-8.7)
[2024-04-14 16:26] LABS: Acetaminophen < 5.0 ug/mL (10-30); Alcohol Level < 10 mg/dL (0-10); Salicylate < 0.3 mg/dL (3-10)
[2024-04-14 16:53] VITALS: BMI 23.5
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
[2024-04-14 20:00] VITALS: BP 119/70; PULSE 52; RESP 18; TEMP 37; O2SAT 99
[2024-04-15] VITALS: RESP 16
[2024-04-15 04:00] VITALS: BP 90/49; PULSE 51; RESP 16; TEMP 37.2; O2SAT 97
[2024-04-15 08:00] VITALS: BP 110/76; PULSE 72; RESP 18; TEMP 36.6; O2SAT 96
--- NOTE | 2024-04-15 11:11 | PC.OT ---
OT EVALUATION ATTEMPTED TWICE IN A.M. PATIENT SLEEPING SOUNDLY AND DOES NOT AWAKEN TO NAME.
[2024-04-15 12:00] VITALS: RESP 16
--- NOTE | 2024-04-15 13:18 | PC.NURSE ---
patient refused vitals.
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
[2024-04-15] MEDS: venlafaxine ER (24HR) 37.5 mg Capsule PO (15:05)
[2024-04-15 16:00] VITALS: BP 116/65; PULSE 86; RESP 18; TEMP 36.9; O2SAT 98
--- NOTE | 2024-04-15 17:13 | PC.OT ---
OT EVALUATION ATTEMPTED TWICE IN A.M.; PATIENT SLEEPING SOUNDLY OT EVALUATION ATTEMPTED IN P.M.; PATIENT AWAKENS BUT DECLINES TO PARTICIPATE IN OT EVALUATION TODAY.
[2024-04-15 17:28] LABS: Amphetamines Screen Urine Negative (Negative); Barbiturates Screen Urine Negative (Negative); Benzodiazepines Screen Urine Positive (Negative); Cocaine Screen Urine Negative (Negative); Opiate Screen Urine Negative (Negative); PCP Screen Urine Negative (Negative); THC Screen Urine Positive (Negative)
[2024-04-15 20:00] VITALS: BP 107/71; PULSE 75; RESP 16; TEMP 37.2; O2SAT 93
[2024-04-16] VITALS: BP 93/55; PULSE 56; RESP 16; O2SAT 98
[2024-04-16 04:00] VITALS: RESP 16
[2024-04-16 08:00] VITALS: BP 109/59; PULSE 84; RESP 18; TEMP 36.7; O2SAT 95
[2024-04-16] MEDS: venlafaxine ER (24HR) 37.5 mg Capsule PO (08:39)
--- NOTE | 2024-04-16 10:59 | PC.NURSE ---
AMA Patient left AMA, upon discharge patient has no belongings. Patient denies suicidal ideations at this time.
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
== END 2024-04-16 10:54 | disposition left against medical advice (07) | DRG 881 ==
LOC: ER 15:27 → NP 15:36
PROVIDERS: Admitting Provider Psychiatry & Neurology Psychiatry; Emergency Provider Emergency Medicine; PCP Family Medicine; Visit Provider Psychiatry & Neurology Psychiatry
DX: F32.A Depression, unspecified (principal); F41.9 Anxiety disorder, unspecified; F63.81 Intermittent explosive disorder; F17.210 Nicotine dependence, cigarettes, uncomplicated; K21.9 Gastro-esophageal reflux disease without esophagitis; F95.2 Tourette's disorder; F12.10 Cannabis abuse, uncomplicated; Z56.0 Unemployment, unspecified; Z53.29 Procedure and treatment not carried out because of patient's decision for other reasons
CPT/HCPCS: 36415; 80053; 80306; 80307; 85025; 97165; 99285

== ENCOUNTER → 2025-01-27 10:15 | Outpatient (BNVA) | payer MEDICAID, SELFPAY | PROVIDERS: PCP Family Medicine; Referring Provider Family Medicine; Visit Provider Student in an Organized Health Care Education/Training Program | DX: K92.1 Melena (principal) | CPT/HCPCS: 99204 ==

== ENCOUNTER 2025-02-08 10:47 | Day surgery (SDC) | payer MEDICAID, SELFPAY ==
[2025-02-08 10:58] VITALS: BP 117/67; PULSE 61; RESP 18; TEMP 36.6; O2SAT 99; BMI 23.3
[2025-02-08] MEDS: sodium chloride 0.9% 1,000 ML 15 ML IV (11:18)
--- NOTE | 2025-02-08 11:42 | ANES.PREANE2 ---
Pre-Anesthetic Assessment Height/Weight: Height 1.7 m Weight 67.585 kg Temp Pulse Resp BP Pulse Ox O2 Del Method 97.8 F 61 18 117/67 99 Room Air 02/08/25 10:58 02/08/25 10:58 02/08/25 10:58 02/08/25 10:58 02/08/25 10:58 02/08/25 10:58 Preop Diagnosis: melena Operation Date: 02/08/25 12:00 Proposed Procedures p EGD 12724 K92.1(Not Applicable) - Martín Bcuhanan MD Was Beta Catie taken within 24 hours: N/A Was Clonidine taken within 24 hours: N/A Last intake: Intake Last Liquid Date 02/07/25 Last Liquid Time 17:00 Last Solid Date 02/07/25 Last Solid Time 19:00 Social Tobacco 1/2ppd pack(s) per day daily MJ smoker- smoked this AM Exam alert and oriented x 3 Airway Submandibular: within normal limits Cervical ROM: within normal limits Mallampati: Class I Dentition: full Pulmonary None reported CV/HEM Hypertension None reported Hepatic None reported GI Gastroesophageal Reflux Disease Metabolic Hyperlipidemia [facility] None reported Neuropsych Anxiety, Depression and Seizure tic disorder, torette, uses MJ for anxiety Anesthetic Plan ASA status: 3 Anesthesia: Anesthesia Evaluation and MAC Risk of > 500 ml blood loss (7ml/kg in children): No Medications/Allergies Home Medications ?Medication ?Instructions ?Recorded ?Confirmed ?Last Taken ?Type atorvastatin 10 mg tablet 10 mg PO BEDTIME 01/27/25 02/07/25 02/07/25 History Allergies Allergy/AdvReac Type Severity Reaction Status Date / Time coconut Allergy Severe cannot Verified 01/27/25 10:26 breathe guanfacine (From Tenex) Allergy Unknown Verified 01/27/25 10:26 promethazine (From Phenergan) Allergy ADR-Nausea Verified 01/27/25 10:26 Current Medications Generic Name Dose Route Start Last Admin Trade Name Freq PRN Reason Stop Dose Admin Sodium Chloride 1,000 mls @ 15 mls/hr 02/08/25 10:49 02/08/25 11:18 Sodium Chloride 0.9% IV 02/09/25 10:48 15 mls/hr .Q24H PRN Administration COLONOSCOPY FLUIDS PFSH Anesthesia Medical History Gastroesophageal reflux disease Intermittent explosive disorder Tourette syndrome Marijuana abuse Tobacco dependence No pertinent family history Homicidal ideation Suicidal ideation Acute depression Methamphetamine abuse Surgical History No pertinent past surgical history Family History Denies family history of Clotting disorder Anesthesia complication Bleeding disorder Social History Smoking and tobacco/nicotine status: current every day tobacco/nicotine user (1/2PPD) cigarettes Packs smoked per day: 1 Years cigarettes smoked: 20 Alcohol intake: current Alcohol intake frequency: few times a month Substance/Drug Use: current Substance/Drug use frequency: daily Other substance/drug use details: formerly used meth
--- NOTE | 2025-02-08 12:03 | W.PM.OPSUD ---
Surgery/Procedure H&P Update DATE OF PROCEDURE: February 08, 2025 DATE H&P PERFORMED: 01/27/25 H&P UPDATE INFORMATION: I have reviewed H&P completed within last 30 days, I have examined patient prior to procedure and No changes to prior documentation PREOP DIAGNOSIS: melena PLANNED PROCEDURE: Operation Date: 02/08/25 12:00 Proposed Procedures p EGD 32541 K92.1(Not Applicable) - Martín Buchanan MD
[2025-02-08 12:18] VITALS: BP 103/63; PULSE 60; RESP 18; TEMP 36.4; O2SAT 95
--- NOTE | 2025-02-08 12:50 | ANE.PACU2 ---
Inpatient post-anesthesia follow up: Airway intact: Yes Vital signs: Temperature 97.5 F Pulse Rate 62 Respiratory Rate 18 Blood Pressure 106/72 Pulse Oximetry 98 Oxygen Delivery Me thod Room Air Oxygen Flow Rate Fraction of Inspir ed Oxygen Hydration adequate: Yes Nausea and vomiting: No Pain level: 1 Mental status: Baseline
[2025-02-08 12:56] VITALS: BP 106/72; PULSE 62; RESP 18; O2SAT 98
== END 2025-02-08 12:53 | disposition home or self-care (01) ==
PROVIDERS: PCP Family Medicine; Visit Provider Student in an Organized Health Care Education/Training Program
PROC: 0DJ08ZZ Inspection of Upper Intestinal Tract, Via Natural or Artificial Opening Endoscopic (ICD-10-PCS; principal; 2025-02-08 12:00)
DX: K29.51 Unspecified chronic gastritis with bleeding (principal); K29.81 Duodenitis with bleeding; K44.9 Diaphragmatic hernia without obstruction or gangrene; I10 Essential (primary) hypertension; K21.9 Gastro-esophageal reflux disease without esophagitis; F17.210 Nicotine dependence, cigarettes, uncomplicated; E78.5 Hyperlipidemia, unspecified; Z79.899 Other long term (current) drug therapy
CPT/HCPCS: 43239; 88305; J2704; J7030

== ENCOUNTER → 2025-02-21 10:41 | Outpatient (BNVA) | payer MEDICAID, SELFPAY | PROVIDERS: PCP Family Medicine; Visit Provider Student in an Organized Health Care Education/Training Program | DX: Z09 Encounter for follow-up examination after completed treatment for conditions other than malignant neoplasm (principal) | CPT/HCPCS: 99213 ==

== ENCOUNTER 2025-04-04 07:36 | Emergency (ER) | payer MEDICAID, SELFPAY ==
[2025-04-04 07:37] VITALS: BP 120/73; PULSE 72; RESP 20; TEMP 36.7; O2SAT 100; BMI 23.6
--- NOTE | 2025-04-04 07:43 | XR_ITS ---
WS: [id number] Portable AP semiupright chest, Clinical Data: dyspnea/cough Comparison: None. Findings: No nodules, masses or effusions are seen. The heart is normal. The pulmonary vascularity is not increased. No pneumonia or pneumothorax is seen. XR/XR chest 1V portable [id number] Impression: Negative chest.
--- NOTE | 2025-04-04 07:44 | CT_ITS ---
WS: [id number] CT scan of the abdomen and pelvis with Oral and IV contrast. Additional two- dimensional coronal and sagittal reconstruction was performed. 04/04/2025 Clinical Data: abd pain Comparison: CT abdomen pelvis, 10/04/2020 DLP: 345.[address] scans at [facility] use at least one of these dose optimization techniques: automated exposure control; mA and/or kV adjustment per patient size (includes targeted exams where dose is matched to clinical indication); or iterative reconstruction. Findings: The lower lungs show no nodules, masses or effusions. The liver, gallbladder, spleen, adrenal glands and pancreas are normal. The kidneys show equal bilateral contrast excretion with no cyst or masses. The left kidney measures 5.3 cm but does show function. The abdominal aorta is normal in size. No appendicitis or diverticulitis is seen the stomach, small bowel and colon are not remarkable. There is fecal material in the colon. No abscess, adenopathy, ascites, mass, abscess or malrotation is seen. The bladder is unremarkable. No inguinal hernia is seen. The bones of the lower thorax, lumbar spine, pelvis, and hips are normal. CT/CT abdomen pelvis w con* [id number] Impression: 1. Small left kidney unchanged. 2. Moderate amount of fecal material in the colon. 3. Negative for acute intra-abdominal or pelvic abnormalities.
--- NOTE | 2025-04-04 07:45 | W.ED.GENADLT ---
HPI - General Adult General: Chief complaint: Abdominal Pain Stated complaint: abd pain Time Seen by Provider: 04/04/25 07:43 History of Present Illness: 45-year-old male presents to the emergency room via EMS with complaints of nausea vomiting. Patient denies hematochezia melena hematemesis or coffee-ground emesis. Reviewing the old records later did note that the patient had an EGD that showed some gastritis and duodenitis that was done in late January of this year. He states he has been out in the heat for the last several days has had nausea vomiting. Patient initially arrives he is belligerent and abusive verbally to staff. After firm redirection he is more amenable to evaluation. Does complain of some vague periumbilical abdominal pain. No previous abdominal surgeries. Denies shortness of breath denies chest pain. Associated symptoms: Deny chest pain, dyspnea or rash Related Data Home Medications ?Medication ?Instructions ?Recorded ?Confirmed atorvastatin 10 mg tablet 10 mg PO BEDTIME 01/27/25 04/04/25 hydroxyzine HCl 25 mg tablet 25 - 50 mg PO Q6H PRN Anxiety 04/04/25 04/04/25 pantoprazole 40 mg tablet,delayed 40 mg PO DAILY 04/04/25 04/04/25 release venlafaxine 37.5 mg 37.5 mg PO DAILY 04/04/25 04/04/25 capsule,extended release 24 hr Previous Rx's ?Medication ?Instructions ?Recorded ondansetron HCl 4 mg tablet 4 mg PO Q6H PRN nausea and 04/04/25 vomiting #20 tabs Allergies Allergy/AdvReac Type Severity Reaction Status Date / Time coconut Allergy Severe cannot Verified 02/21/25 10:57 breathe guanfacine (From Tenex) Allergy Unknown Verified 02/21/25 10:57 promethazine (From Phenergan) Allergy ADR-Nausea Verified 02/21/25 10:57 Review of Systems Const: Denies: fever(s) or chills Card: Denies: chest pain Resp: Denies: dyspnea GI: Denies: abdominal pain : Denies: dysuria, urinary frequency or urinary urgency Musc: Denies: neck pain or back pain Skin/Breast: Denies: rash PFSH ED PFSH: Medical History Gastroesophageal reflux disease Intermittent explosive disorder Tourette syndrome Marijuana abuse Tobacco dependence No pertinent family history Homicidal ideation Suicidal ideation Acute depression Methamphetamine abuse Surgical History No pertinent past surgical history Family History Denies family history of Clotting disorder Anesthesia complication Bleeding disorder Social History Smoking and tobacco/nicotine status: current every day tobacco/nicotine user (1/2PPD) cigarettes Packs smoked per day: 1 Years cigarettes smoked: 20 Alcohol intake: current Alcohol intake frequency: few times a month Substance/Drug Use: current Substance/Drug use frequency: daily Other substance/drug use details: formerly used meth Physical Exam Const: GENERAL APPEARANCE: cooperative ORIENTATION/CONSCIOUSNESS: Yes awake, Yes oriented to person, Yes oriented to place and Yes oriented to time HENMT: COMMON NORMALS: normocephalic, atraumatic and hearing grossly normal bilaterally HEAD & SCALP: normocephalic and atraumatic Resp: COMMON NORMALS: normal respiratory effort, No retractions, No use of accessory muscles and clear to auscultation bilaterally AUSCULTATION: clear to auscultation bilaterally Cardio: COMMON NORMALS: regular rate, regular rhythm and No murmurs present (Cardio) RATE: regular rate RHYTHM: regular rhythm GI: COMMON NORMALS: Soft to palpation and No hepatosplenomegaly present AUSCULTATION: Yes normoactive bowel sounds PALPATION: Yes Soft to palpation, No Tenderness to palpation present (GI), No Guarding due to palpation present (GI) and Yes No hepatosplenomegaly present Extremity: COMMON NORMALS: normal to inspection, capillary refill normal, no clubbing, cyanosis or edema, no calf tenderness and no pedal edema Neuro: SENSORIUM/ORIENTATION: Yes oriented to person, Yes oriented to place and Yes oriented to time Psych: ACTIVITY/MOTOR BEHAVIOR: Yes psychomotor agitation, Yes hyperactivity and Yes restless SPEECH: Yes excessive and Yes rapid MOOD & AFFECT: Yes irritable and Yes hostile affect Skin: COMMON NORMALS: no rashes or lesions noted GENERAL SKIN EXAM: no rashes or lesions noted Course Vital Signs: Vital signs: Vital Signs Temperature 98.0 F 04/04/25 07:37 Pulse Rate 53 L 04/04/25 09:11 Respiratory Rate 20 H 04/04/25 07:37 Blood Pressure 118/68 04/04/25 09:11 Pulse Oximetry 95 04/04/25 09:11 Oxygen Delivery Me thod Room Air 04/04/25 07:37 MDM - General Adult Medical Decision Making Mild elevation in CPK patient mostly volume depleted. He is feeling better after nausea medications and fluid will discharge home with ondansetron to use as needed clearcut at 2044 hrs. and follow-up as needed. Also discussed with patient suspect some of this may be exacerbated by marijuana use. Medical Records I reviewed the patient's medical records. Lab Data I reviewed the patient's lab results. 04/04/25 07:56 04/04/25 07:56 Radiology Impressions Chest X-Ray 04/04/25 07:43 Impression: Negative chest. Abdomen/Pelvis CT 04/04/25 07:44 Impression: 1. Small left kidney unchanged. 2. Moderate amount of fecal material in the colon. 3. Negative for acute intra-abdominal or pelvic abnormalities. Laboratory Results WBC 8.16 10^3/uL (3.29-11.43) 04/04/25 07:56 RBC 4.84 10^6/uL (3.85-5.65) 04/04/25 07:56 Hgb 14.90 g/dL (11.27-16.99) 04/04/25 07:56 Hct 44.0 % (37-53) 04/04/25 07:56 MCV 90.9 fl (82-101) 04/04/25 07:56 MCH 30.8 pg (27-33) 04/04/25 07:56 MCHC 33.9 g/dL (30-55) 04/04/25 07:56 RDW 13.5 % (12.1-15.1) 04/04/25 07:56 Plt Count 273 10^3/cmm (157-399) 04/04/25 07:56 MPV 10.9 fL (7.4-10.4) H 04/04/25 07:56 Neut % (Auto) 57.8 % 04/04/25 07:56 Lymph % (Auto) 30.5 % 04/04/25 07:56 [place] % (Auto) 10.0 % 04/04/25 07:56 Eos % (Auto) 1.0 % 04/04/25 07:56 Baso % (Auto) 0.6 % 04/04/25 07:56 Neut # (Auto) 4.71 10^3/uL (1.8-7.7) 04/04/25 07:56 Lymph # (Auto) 2.5 10^3/uL (0.8-4.8) 04/04/25 07:56 [place] # (Auto) 0.8 10^3/uL (0.2-0.9) 04/04/25 07:56 Eos # (Auto) 0.1 10^3/uL (0.0-0.8) 04/04/25 07:56 Baso # (Auto) 0.1 10^3/uL (0.0-0.1) 04/04/25 07:56 Nucleated RBC % (auto) 0 % 04/04/25 07:56 Nucleated RBCs # 0.0 /100WBC 04/04/25 07:56 Sodium 135 mmol/L (136-145) L 04/04/25 07:56 Potassium 3.5 mmol/L (3.5-5.1) 04/04/25 07:56 Chloride 98 mmol/L (98-107) 04/04/25 07:56 Carbon Dioxide 21 mmol/L (22-29) L 04/04/25 07:56 Anion Gap 19.5 (5-19) H 04/04/25 07:56 BUN 15 mg/dL (6-20) 04/04/25 07:56 Creatinine 1.0 mg/dL (0.7-1.2) 04/04/25 07:56 GFR Calculation 81.6 mL/min (90-130) L 04/04/25 07:56 Glucose 110 mg/dL (65-115) 04/04/25 07:56 Calculated Osmolality 281 mOsm/kg (285-295) L 04/04/25 07:56 Calcium 9.8 mg/dL (8.5-10.5) 04/04/25 07:56 Total Bilirubin 0.5 mg/dL (0.15-1.2) 04/04/25 07:56 AST 23 U/L (0-40) 04/04/25 07:56 ALT 18 U/L (0-41) 04/04/25 07:56 Alkaline Phosphatase 61 U/L (40-130) 04/04/25 07:56 Creatine Kinase 327 U/L (39-308) H* 04/04/25 07:56 Total Protein 7.2 g/dL (6.6-8.7) 04/04/25 07:56 Albumin 4.3 g/dL (3.5-5.2) 04/04/25 07:56 Globulin 2.9 g/dL (1.3-4.6) 04/04/25 07:56 Lipase 25 U/L (13-60) 04/04/25 07:56 Urine Color Yellow (Yellow) 04/04/25 10:30 Urine Appearance Clear (CLEAR) 04/04/25 10:30 Urine pH 7.5 (5-7) 04/04/25 10:30 Ur Specific [place] 1.082 (1.005-1.030) H 04/04/25 10:30 Urine Protein Trace (Negative) A 04/04/25 10:30 Urine Glucose (UA) Negative (Normal) 04/04/25 10:30 Urine Ketones Trace (Negative) 04/04/25 10:30 Urine Blood Negative (Negative) 04/04/25 10:30 Urine Nitrate Negative (Negative) 04/04/25 10:30 Urine Bilirubin Negative (Negative) 04/04/25 10:30 Urine Urobilinogen 1.0 mg/dL (Negative) 04/04/25 10:30 Ur Leukocyte Esterase Negative (Negative) 04/04/25 10:30 Amorphous Sediment Not Reportable 04/04/25 10:30 Urine Opiates Screen Negative ng/mL (Negative) 04/04/25 10:30 Ur Barbiturates Screen Negative ng/mL (Negative) 04/04/25 10:30 Ur Phencyclidine Scrn Negative ng/mL (Negative) 04/04/25 10:30 Ur Amphetamines Screen Negative ng/mL (Negative) 04/04/25 10:30 U Benzodiazepines Scrn Positive ng/mL (Negative) H 04/04/25 10:30 Urine Cocaine Screen Negative ng/mL (Negative) 04/04/25 10:30 U Marijuana (THC) Screen Positive ng/mL (Negative) H 04/04/25 10:30 Ethyl Alcohol < 10 mg/dL (0-10) 04/04/25 07:56 All radiology interpretation(s) finalized by discharge Discharge Plan Discharge Patient Disposition: Home Clinical Impression: Dehydration, Intermittent explosive disorder Condition: Stable Prescriptions: New ondansetron HCl 4 mg tablet 4 mg PO Q6H PRN (Reason: nausea and vomiting) Qty: 20 0RF No Action atorvastatin 10 mg tablet 10 mg PO BEDTIME venlafaxine 37.5 mg capsule,extended release 24hr 37.5 mg PO DAILY pantoprazole 40 mg tablet,delayed release (DR/EC) 40 mg PO DAILY hydroxyzine HCl 25 mg tablet 25 - 50 mg PO Q6H PRN (Reason: Anxiety) Discharge Orders: Discharge ED (Routine); Ordered 04/04/25 Ordered By: David Boggs Referrals: Edison Randall MD [Primary Care Provider, [facility]] Discharge Diet: Clear Liquid Discharge Activity: Increase activity as tolerated Patient Instructions: Opioid Safety, Pain Management, Patient Portal & Karan Instructions Activity Restrictions/Additional Instructions: [facility]. It is very important that you follow up as instructed or that you return to the Emergency Department should you have concerns or if your condition changes or worsens in any way. You were seen in the emergency room with complaints of abdominal pain nausea and vomiting. Labs showed that you were volume depleted (mildly dehydrated). You are given IV fluids and medications for nausea and vomiting. Regular use of marijuana can contribute to making nausea and vomiting worse as well. You were given ondansetron to use as needed. Recommend clear liquid diet for the next 24 to 48 hours then advance as tolerated. Print Language: Telugu Coding Level of Care Code ED Balling Machine Operator for Linnea Couch
--- NOTE | 2025-04-04 08:00 | PC.NURSE ---
PATIENT SHOUTING FROM EMS COT UPON ARRIVAL. PATIENT CONTINUES TO SHOUT HE ENTERS ROOM AND IS PLACED ON ER STRETCHER. THIS NURSE ENTERS ROOM AND TELLS PATIENT THAT HE NEEDS TO REMAIN CALM AND STOP YELLING AT STAFF. PATIENT STATES HE IS SICK AND THAT I AM THE ONLY ONE IN THIS ROOM, SO I CAN YELL IF I FUCKING WANT TO. PATIENT INSTRUCTED THAT HE WOULD NOT YELL AT STAFF OR SPEAK TO STAFF AGGRESSIVELY. PATIENT CONTINUES TO TELL THIS NURSE FUCK YOU AND TO GET OUT OF MY FUCKING ROOM. DR RICHTER PRESENT AT TIME OF PATIENT AGGRESSION AND REDIRECTS PATIENT TO CALM DOWN. SECURITY CALLED, PRESENT AT PATIENT BEDSIDE.
[2025-04-04] MEDS: iohexol 350 mg/mL 500 mL Btl (per mL) IV (08:01)
[2025-04-04 08:17] LABS: Hematocrit 44.0 % (37-53); Hemoglobin 14.90 g/dL (11.27-16.99); Mean Corpuscular HGB Conc 33.9 g/dL (30-55); Mean Corpuscular Hemoglobin 30.8 pg (27-33); Mean Corpuscular Volume 90.9 fl (82-101); Nucleated Red Blood Cells % 0 %; Platelet Count 273 10^3/cmm (157-399); Red Blood Count 4.84 10^6/uL (3.85-5.65); White Blood Count 8.16 10^3/uL (3.29-11.43)
[2025-04-04 08:19] LABS: Alanine Aminotransferase 18 U/L (0-41); Albumin Level 4.3 g/dL (3.5-5.2); Alkaline Phosphatase 61 U/L (40-130); Anion Gap 19.5 (5-19); Aspartate Amino Transferase 23 U/L (0-40); Blood Urea Nitrogen 15 mg/dL (6-20); Calcium 9.8 mg/dL (8.5-10.5); Carbon Dioxide 21 mmol/L (22-29); Chloride 98 mmol/L (98-107); Creatinine Clr Calc Pharmacy 93.1777; Globulin 2.9 g/dL (1.3-4.6); Glucose 110 mg/dL (65-115); Lipase 25 U/L (13-60); Osmolality Calculated 281 mOsm/kg (285-295); Potassium 3.5 mmol/L (3.5-5.1); Sodium 135 mmol/L (136-145); Total Protein 7.2 g/dL (6.6-8.7)
[2025-04-04] MEDS: LORazepam 1 MG/0.5 ML injection 2 MG IVP (08:19)
[2025-04-04] MEDS: haloperidol inj 5 mg/mL INJ 1 mL 2.5 MG IVP (08:21)
[2025-04-04 08:26] LABS: Alcohol Level < 10 mg/dL (0-10)
[2025-04-04] MEDS: pantoprazole 40 mg SDV 80 MG IVP (09:10)
[2025-04-04 09:11] VITALS: BP 118/68; PULSE 53; O2SAT 95
--- NOTE | 2025-04-04 09:48 | PC.PHAR ---
Pt did not respond to questions. Verified current medications with [facility].
--- NOTE | 2025-04-04 10:26 | ECG_ITS ---
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 Measurements Intervals [place] Rate: 56 P: 59 MT: 131 QRS: 86 QRSD: 88 T: 76 QT: 414 QTc: 403 Interpretive Statements SINUS BRADYCARDIA WITH OCCASIONAL SUPRAVENTRICULAR PREMATURE COMPLEXES No previous ECG available for comparison Electronically Signed On 04-09-2025 09:17:52 CDT by Shane Reyes M.D. [email or web address] [id number]
[2025-04-04 10:43] LABS: Add Urine Microscopic? NO
[2025-04-04 10:46] LABS: Glucose Urine UA Negative (Normal); Nitrate Urine Negative (Negative)
[2025-04-04 10:48] LABS: Specific Gravity, Urine 1.082 (1.005-1.030)
[2025-04-04 10:54] LABS: Charge for UA Resulting for Rev
[2025-04-04 10:56] LABS: PCP Screen Urine Negative (Negative)
[2025-04-04 11:45] VITALS: BP 0/0; PULSE 59; O2SAT 96
== END 2025-04-04 11:45 | disposition home or self-care (01) ==
PROVIDERS: Emergency Provider Family Medicine; PCP Family Medicine
DX: E86.0 Dehydration (principal); F63.81 Intermittent explosive disorder; F17.210 Nicotine dependence, cigarettes, uncomplicated
CPT/HCPCS: 71045; 74177; 80053; 80306; 80307; 81003; 82550; 83690; 85025; 93005; 96361; 96374; 96375; 99285; J1630; J2060; J2470; J7030

== ENCOUNTER 2025-06-12 13:17 | Emergency (ER) | payer MEDICAID, SELFPAY ==
[2025-06-12 14:02] VITALS: BP 95/59; PULSE 81; RESP 18; TEMP 36.7; O2SAT 93
--- NOTE | 2025-06-12 14:15 | CTR_ITS ---
PROCEDURE INFORMATION: Exam: CT Abdomen And Pelvis With Contrast Exam date and time: 06/12/2025 2:56 PM Age: 45 years old Clinical indication: Abdominal pain; Generalized; Additional info: Abd pain TECHNIQUE: Imaging protocol: Computed tomography of the abdomen and pelvis with contrast. Axial, coronal and sagittal reformatted images were created and reviewed. Radiation optimization: All CT scans at this facility use at least one of these dose optimization techniques: automated exposure control; mA and/or kV adjustment per patient size (includes targeted exams where dose is matched to clinical indication); or iterative reconstruction. Contrast material: OMNI 350; Contrast volume: 100 ml; Contrast route: INTRAVENOUS (IV); COMPARISON: CT abdomen pelvis w con* [id number] 04/04/2025 7:57 AM RADIATION DOSE METRICS: Total DLP (mGy-cm): 331.64 FINDINGS: Liver: 3 mm low-density lesion in the right hepatic lobe, too small to characterize. Gallbladder and biliary ducts: No radiodense gallstones. No biliary ductal dilatation. Pancreas: Unremarkable. Spleen: Unremarkable. Adrenal glands: Normal. No mass. Kidneys and ureters: Left renal atrophy. No radiodense calculi. No hydronephrosis. Stomach and bowel: No bowel wall thickening. No obstruction. No pneumatosis. Appendix: Normal. Intraperitoneal space: No free fluid. No organized fluid collection. No free air. Vasculature: Unremarkable. No aneurysm. Lymph nodes: No pathologically enlarged lymph nodes. Urinary bladder: Mild circumferential urinary bladder wall thickening. Reproductive: Unremarkable. Bones/joints: No acute osseous abnormality. Osteopenia. Mild degenerative changes. Soft tissues: Unremarkable. CT/CT abdomen pelvis w con* [id number] IMPRESSION: 1. Mild circumferential urinary bladder wall thickening. Correlate with urinalysis to exclude cystitis. 2. Additional findings, as above.
[2025-06-12 14:28] LABS: Hematocrit 44.6 % (37-53); Hemoglobin 15.20 g/dL (11.27-16.99); Mean Corpuscular HGB Conc 34.1 g/dL (30-55); Mean Corpuscular Hemoglobin 30.5 pg (27-33); Mean Corpuscular Volume 89.4 fl (82-101); Nucleated Red Blood Cells % 0 %; Platelet Count 241 10^3/cmm (157-399); Red Blood Count 4.99 10^6/uL (3.85-5.65); White Blood Count 12.49 10^3/uL (3.29-11.43)
[2025-06-12] MEDS: metoclopramide 5 mg/mL SDV 2 mL 10 MG IVP (14:35)
[2025-06-12] MEDS: diphenhydrAMINE 50 mg/mL SDV 1mL IVP (14:35)
--- NOTE | 2025-06-12 14:37 | W.ED.NAVMDI ---
HPI - Nausea/Vomiting/Diarrhea General: Chief complaint: Nausea/Vomiting/Diarrhea Stated complaint: n/v Time Seen by Provider: 06/12/25 14:14 Source: patient Mode of arrival: ambulatory Limitations: no limitations History of Present Illness: 45-year-old male who states that he eaten hot sauce on a pizza 3 days ago and since then has been having severe epigastric abdominal pain. States pains been sharp in nature and has had some nausea and vomiting as well. Patient was actually asleep when is in the room but when he woke up he stated his pain was a 8 out of 10. States its been constant he denies any worse or improving factors. Associated nausea: Yes Associated symtoms: Reports nausea Related Data Home Medications ?Medication ?Instructions ?Recorded ?Confirmed atorvastatin 10 mg tablet 10 mg PO BEDTIME 01/27/25 06/12/25 pantoprazole 40 mg tablet,delayed 40 mg PO DAILY 04/04/25 06/12/25 release trazodone 50 mg tablet 50 mg PO BEDTIME 06/12/25 06/12/25 Previous Rx's ?Medication ?Instructions ?Recorded ondansetron HCl 4 mg tablet 4 mg PO Q6H PRN nausea and 04/04/25 vomiting #20 tabs ondansetron 4 mg disintegrating 4 mg PO Q6H PRN nausea and 06/12/25 tablet vomiting #14 tabs Allergies Allergy/AdvReac Type Severity Reaction Status Date / Time coconut Allergy Severe cannot Verified 02/21/25 10:57 breathe fentanyl Allergy Unknown Verified 06/12/25 14:05 guanfacine (From Tenex) Allergy Unknown Verified 02/21/25 10:57 promethazine (From Phenergan) Allergy ADR-Nausea Verified 02/21/25 10:57 Review of Systems GI: Reports: abdominal pain, nausea and vomiting [facility] ED PFSH: Medical History Gastroesophageal reflux disease Intermittent explosive disorder Tourette syndrome Marijuana abuse Tobacco dependence No pertinent family history Homicidal ideation Suicidal ideation Acute depression Methamphetamine abuse Surgical History No pertinent past surgical history Family History Denies family history of Clotting disorder Anesthesia complication Bleeding disorder Social History Smoking and tobacco/nicotine status: current every day tobacco/nicotine user (1/2PPD) cigarettes Packs smoked per day: 1 Years cigarettes smoked: 20 Alcohol intake: current Alcohol intake frequency: few times a month Substance/Drug Use: current Substance/Drug use frequency: daily Other substance/drug use details: formerly used meth Physical Exam Const: COMMON NORMALS: no acute distress, patient oriented x3 and healthy appearing HENMT: COMMON NORMALS: normocephalic and atraumatic HEAD & SCALP: normocephalic and atraumatic Neck/C-Spine: COMMON NORMALS: full ROM and supple Chest: COMMONS NORMALS: normal inspection of the chest Resp: COMMON NORMALS: normal respiratory effort, No retractions, No use of accessory muscles and clear to auscultation bilaterally AUSCULTATION: clear to auscultation bilaterally Cardio: COMMON NORMALS: regular rate, regular rhythm and No murmurs present (Cardio) RATE: regular rate RHYTHM: regular rhythm GI: COMMON NORMALS: Normal to inspection, nondistended, normoactive bowel sounds present, Soft to palpation and no masses PALPATION: Yes Soft to palpation OTHER: diffuse mild tenderness Extremity: COMMON NORMALS: normal to inspection and full ROM Neuro: COMMON NORMALS: patient oriented x3, moves all extremities and no focal motor deficits Psych: COMMON NORMALS: mental status grossly normal, Normal thought process present and cooperative THOUGHT PROCESS: Normal thought process present Skin: COMMON NORMALS: no rashes or lesions noted and no wounds GENERAL SKIN EXAM: no rashes or lesions noted Course Vital Signs: Vital signs: Vital Signs Temperature 98.1 F 06/12/25 14:02 Pulse Rate 81 06/12/25 14:02 Respiratory Rate 18 06/12/25 14:02 Blood Pressure 95/59 06/12/25 14:02 Pulse Oximetry 93 06/12/25 14:02 Oxygen Delivery Me thod Room Air 06/12/25 14:02 MDM - Nausea/Vomiting/Diarrhea Medical Decision Making Patient presents here with a vomiting along with abdominal pains going on for 3 days differential includes pancreatitis, small bowel obstruction, cholecystitis. Patient CT scan here shows no acute findings no signs of bowel obstruction cholecystitis or pancreatitis. Blood work including white count electrolytes are all normal he does feel improved after Reglan and Benadryl and has been able to tolerate p.o. Urinalysis showed no signs UTI will prescribe him Zofran for home. I did go over all of his findings with him he is stable for discharge he is return if worsening he understands agrees to plan. Medical Records I reviewed the patient's medical records. Lab Data I reviewed the patient's lab results. 06/12/25 14:22 06/12/25 14:22 Radiology Impressions Abdomen/Pelvis CT 06/12/25 14:15 IMPRESSION: 1. Mild circumferential urinary bladder wall thickening. Correlate with urinalysis to exclude cystitis. 2. Additional findings, as above. Laboratory Results WBC 12.49 10^3/uL (3.29-11.43) H 06/12/25 14:22 RBC 4.99 10^6/uL (3.85-5.65) 06/12/25 14:22 Hgb 15.20 g/dL (11.27-16.99) 06/12/25 14:22 Hct 44.6 % (37-53) 06/12/25 14:22 MCV 89.4 fl (82-101) 06/12/25 14:22 MCH 30.5 pg (27-33) 06/12/25 14:22 MCHC 34.1 g/dL (30-55) 06/12/25 14:22 RDW 12.7 % (12.1-15.1) 06/12/25 14:22 Plt Count 241 10^3/cmm (157-399) 06/12/25 14:22 MPV 11.3 fL (7.4-10.4) H 06/12/25 14:22 Neut % (Auto) 79.2 % 06/12/25 14:22 Lymph % (Auto) 14.5 % 06/12/25 14:22 [place] % (Auto) 5.8 % 06/12/25 14:22 Eos % (Auto) 0.0 % 06/12/25 14:22 Baso % (Auto) 0.2 % 06/12/25 14:22 Neut # (Auto) 9.88 10^3/uL (1.8-7.7) H 06/12/25 14:22 Lymph # (Auto) 1.8 10^3/uL (0.8-4.8) 06/12/25 14:22 [place] # (Auto) 0.7 10^3/uL (0.2-0.9) 06/12/25 14:22 Eos # (Auto) 0.0 10^3/uL (0.0-0.8) 06/12/25 14:22 Baso # (Auto) 0.0 10^3/uL (0.0-0.1) 06/12/25 14:22 Nucleated RBC % (auto) 0 % 06/12/25 14:22 Nucleated RBCs # 0.0 /100WBC 06/12/25 14:22 Sodium 135 mmol/L (136-145) L 06/12/25 14:22 Potassium 3.5 mmol/L (3.5-5.1) 06/12/25 14:22 Chloride 92 mmol/L (98-107) L 06/12/25 14:22 Carbon Dioxide 27 mmol/L (22-29) 06/12/25 14:22 Anion Gap 19.5 (5-19) H 06/12/25 14:22 BUN 14 mg/dL (6-20) 06/12/25 14:22 Creatinine 1.1 mg/dL (0.7-1.2) 06/12/25 14:22 GFR Calculation 73.1 mL/min (90-130) L 06/12/25 14:22 Glucose 116 mg/dL (65-115) H 06/12/25 14:22 Calculated Osmolality 281 mOsm/kg (285-295) L 06/12/25 14:22 Calcium 9.8 mg/dL (8.5-10.5) 06/12/25 14:22 Total Bilirubin 0.5 mg/dL (0.15-1.2) 06/12/25 14:22 AST 22 U/L (0-40) 06/12/25 14:22 ALT 19 U/L (0-41) 06/12/25 14:22 Alkaline Phosphatase 65 U/L (40-130) 06/12/25 14:22 Total Protein 7.5 g/dL (6.6-8.7) 06/12/25 14:22 Albumin 4.7 g/dL (3.5-5.2) 06/12/25 14:22 Globulin 2.8 g/dL (1.3-4.6) 06/12/25 14:22 Lipase 32 U/L (13-60) 06/12/25 14:22 Urine Color Yellow (Yellow) 06/12/25 16:50 Urine Appearance Clear (CLEAR) 06/12/25 16:50 Urine pH 6.5 (5-7) 06/12/25 16:50 Ur Specific [place] 1.046 (1.005-1.030) H 06/12/25 16:50 Urine Protein Negative (Negative) 06/12/25 16:50 Urine Glucose (UA) Negative (Normal) 06/12/25 16:50 Urine Ketones Negative (Negative) 06/12/25 16:50 Urine Blood Negative (Negative) 06/12/25 16:50 Urine Nitrate Negative (Negative) 06/12/25 16:50 Urine Bilirubin Negative (Negative) 06/12/25 16:50 Urine Urobilinogen 1.0 mg/dL (Negative) 06/12/25 16:50 Ur Leukocyte Esterase Negative (Negative) 06/12/25 16:50 Urine RBC 0-2 /hpf (0-2) 06/12/25 16:50 Urine WBC 0-5 /hpf (0-5) 06/12/25 16:50 Ur Squamous Epith Cells 0-5 /hpf (0-5) 06/12/25 16:50 Amorphous Sediment Not Reportable 06/12/25 16:50 Urine Bacteria None seen /hpf (NONE) 06/12/25 16:50 Hyaline Casts 0-4 /lpf H 06/12/25 16:50 All radiology interpretation(s) finalized by discharge Discharge Plan Discharge Patient Disposition: Home Clinical Impression: Abdominal pain Qualifiers: Abdominal location: generalized Qualified Code(s): R10.84 - Generalized abdominal pain Vomiting Qualifiers: Vomiting type: unspecified Nausea presence: with nausea Qualified Code(s): R11.2 - Nausea with vomiting, unspecified Condition: Stable Prescriptions: New ondansetron 4 mg tablet,disintegrating 4 mg PO Q6H PRN (Reason: nausea and vomiting) Qty: 14 0RF No Action atorvastatin 10 mg tablet 10 mg PO BEDTIME pantoprazole 40 mg tablet,delayed release (DR/EC) 40 mg PO DAILY ondansetron HCl 4 mg tablet 4 mg PO Q6H PRN (Reason: nausea and vomiting) Qty: 20 0RF trazodone 50 mg tablet 50 mg PO BEDTIME Discharge Orders: Discharge ED (Routine); Ordered 06/12/25 Ordered By: Pb Kingsley Referrals: Edison Randall MD [Primary Care Provider, Family Practice] - 4-7 days Discharge Diet: Advance as tolerated Discharge Activity: Resume usual activity Patient Instructions: Acute Nausea and Vomiting (ED), Abdominal Pain (ED) Print Language: Moldovan Coding Level of Care Code ED Roll Tube Setter for Linnea Couch
[2025-06-12 14:44] LABS: Alanine Aminotransferase 19 U/L (0-41); Albumin Level 4.7 g/dL (3.5-5.2); Alkaline Phosphatase 65 U/L (40-130); Anion Gap 19.5 (5-19); Aspartate Amino Transferase 22 U/L (0-40); Blood Urea Nitrogen 14 mg/dL (6-20); Calcium 9.8 mg/dL (8.5-10.5); Carbon Dioxide 27 mmol/L (22-29); Chloride 92 mmol/L (98-107); Creatinine Clr Calc Pharmacy 82.9291; Globulin 2.8 g/dL (1.3-4.6); Glucose 116 mg/dL (65-115); Lipase 32 U/L (13-60); Osmolality Calculated 281 mOsm/kg (285-295); Potassium 3.5 mmol/L (3.5-5.1); Sodium 135 mmol/L (136-145); Total Protein 7.5 g/dL (6.6-8.7)
[2025-06-12] MEDS: lidocaine 2% viscous 15 ML, aluminum-mag hydrox-simethicon 30 ML, sucralfate oral liq 1 GM PO (14:50)
[2025-06-12] MEDS: iohexol 350 mg/mL 500 mL Btl (per mL) IV (14:59)
[2025-06-12 17:07] LABS: Glucose Urine UA Negative (Normal); Nitrate Urine Negative (Negative)
[2025-06-12 17:12] LABS: Add Urine Microscopic? YES; Specific Gravity, Urine 1.046 (1.005-1.030)
[2025-06-12 17:33] VITALS: BP 94/49; PULSE 66; RESP 16; O2SAT 94
== END 2025-06-12 17:34 | disposition home or self-care (01) ==
PROVIDERS: Emergency Provider Emergency Medicine; PCP Family Medicine
DX: R10.84 Generalized abdominal pain (principal); R11.2 Nausea with vomiting, unspecified; F17.210 Nicotine dependence, cigarettes, uncomplicated
CPT/HCPCS: 36415; 74177; 80053; 81001; 83690; 85025; 96374; 96375; 99285; J1200; J2765; J7030; J9999

== ENCOUNTER 2025-07-04 11:50 | Emergency (ER) | payer MEDICAID, SELFPAY ==
--- NOTE | 2025-07-04 11:53 | XR_ITS ---
WS: [id number] XR chest 1V portable [id number] REASON FOR EXAM: chest pain FINDINGS: The chest is unchanged compared to 04/04/2025. The heart and mediastinum are within normal limits. Calcified granulomatous disease of both hemithoraces. No acute pulmonary parenchymal or pleural abnormality. No significant abnormality of the bony thorax. XR/XR chest 1V portable [id number] IMPRESSION: Stable chest without acute abnormality.
--- NOTE | 2025-07-04 11:53 | ECG_ITS ---
[facility] Test Date: 2025-07-04 Pat Name: Jeffery Drake Department: Room: Gender: Male Manager Inventory: : 1980 Requested By: Azalea Andino Order Number: [id number] Johnson MD: Shane Reyes M.D. Measurements Intervals [place] Rate: 68 P: 70 SD: 134 QRS: 90 QRSD: 97 T: 76 QT: 365 QTc: 389 Interpretive Statements SINUS RHYTHM Compared to ECG 04/04/2025 10:26:19 Sinus bradycardia no longer present Electronically Signed On 07-06-2025 09:49:50 MICA PLATE LAYER HAND by Shane Reyes M.D. [email or web address] [id number]
[2025-07-04 12:01] VITALS: BP 102/71; PULSE 77; RESP 17; TEMP 36.7; O2SAT 98; BMI 23.5
[2025-07-04 12:16] LABS: Hematocrit 43.6 % (37-53); Hemoglobin 14.40 g/dL (11.27-16.99); Mean Corpuscular HGB Conc 33.0 g/dL (30-55); Mean Corpuscular Hemoglobin 30.3 pg (27-33); Mean Corpuscular Volume 91.8 fl (82-101); Nucleated Red Blood Cells % 0 %; Platelet Count 185 10^3/cmm (157-399); Red Blood Count 4.75 10^6/uL (3.85-5.65); White Blood Count 6.77 10^3/uL (3.29-11.43)
[2025-07-04 12:37] LABS: Alanine Aminotransferase 13 U/L (0-41); Albumin Level 4.5 g/dL (3.5-5.2); Alkaline Phosphatase 54 U/L (40-130); Anion Gap 12.0 (5-19); Aspartate Amino Transferase 15 U/L (0-40); Blood Urea Nitrogen 14 mg/dL (6-20); Calcium 9.3 mg/dL (8.5-10.5); Carbon Dioxide 28 mmol/L (22-29); Chloride 100 mmol/L (98-107); Globulin 2.0 g/dL (1.3-4.6); Glucose 103 mg/dL (65-115); Lipase 17 U/L (13-60); Osmolality Calculated 283 mOsm/kg (285-295); Potassium 4.0 mmol/L (3.5-5.1); Sodium 136 mmol/L (136-145); Total Protein 6.5 g/dL (6.6-8.7)
[2025-07-04 12:38] LABS: Troponin(5th) Baseline 9 ng/L (0-15)
--- NOTE | 2025-07-04 13:53 | ECG_ITS ---
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 Measurements Intervals [place] Rate: 62 P: 81 MD: 124 QRS: 93 QRSD: 94 T: 75 QT: 402 QTc: 408 Interpretive Statements SINUS RHYTHM POSSIBLE RIGHT ATRIAL ENLARGEMENT [0.25mV P-WAVE] BORDERLINE RIGHT AXIS DEVIATION [QRS AXIS > 90] Compared to ECG 07/04/2025 11:57:39 No significant changes Electronically Signed On 07-07-2025 00:24:41 EXECUTIVE PRODUCER PROMOS by Shane Reyes M.D. [email or web address] [id number]
--- NOTE | 2025-07-04 13:54 | W.ED.CHESTPA ---
HPI - Chest Pain General: Chief Complaint: Chest Pain Stated Complaint: cp Time Seen by Provider: 07/04/25 13:50 Source: patient Mode of arrival: ambulatory Limitations: no limitations History of Present Illness: Patient is a 45-year-old male with a history of psychiatric illness including Tourette's syndrome and intermittent explosive disorder, GERD, everyday cigarette smoker here for evaluation for an episode of chest pain. Patient states around 10 AM this morning he got very upset with his dog who was not listening and states he was yelling and screaming at the animal when he began developing chest pain. Patient assumed it was probably anxiety related as he does have a history of this. He states he took 2 fast-acting Zyprexa. He states he came to the emergency department just to make sure . Upon arrival and during my initial assessment with patient he does tell me he is feeling significantly better. He has no history of cardiac issues. Vital signs are stable upon arrival. He is not complaining of feeling short of breath. MD complaint: chest pain Onset (ago): hour(s) Timing of current episode: other (improving) Prior episodes: No Onset: other (with stress/anxiety) Pain location: substernal and right chest Pain radiation: none Severity: moderate (at worst 7/10-now rating a 3/10) Relieving factors: rest Exacerbating factors: stress Associated symptoms: Deny abdominal pain, dyspnea, fever(s), nausea, palpitations, syncope or vomiting Treatment prior to arrival: none Risk Factors: Coronary artery disease risk factors: smoking history Thoracic aortic dissection risk factors: none Related Data Home Medications ?Medication ?Instructions ?Recorded ?Confirmed atorvastatin 10 mg tablet 10 mg PO BEDTIME 01/27/25 06/12/25 pantoprazole 40 mg tablet,delayed 40 mg PO DAILY 04/04/25 06/12/25 release trazodone 50 mg tablet 50 mg PO BEDTIME 06/12/25 06/12/25 Previous Rx's ?Medication ?Instructions ?Recorded ondansetron HCl 4 mg tablet 4 mg PO Q6H PRN nausea and 04/04/25 vomiting #20 tabs ondansetron 4 mg disintegrating 4 mg PO Q6H PRN nausea and 06/12/25 tablet vomiting #14 tabs Allergies Allergy/AdvReac Type Severity Reaction Status Date / Time coconut Allergy Severe cannot Verified 02/21/25 10:57 breathe fentanyl Allergy Unknown Verified 06/12/25 14:05 guanfacine (From Tenex) Allergy Unknown Verified 02/21/25 10:57 promethazine (From Phenergan) Allergy ADR-Nausea Verified 02/21/25 10:57 Review of Systems Const: Denies: fever(s) or chills Eyes: Denies: change in vision or blurry vision Card: Reports: chest pain (improving); Denies: palpitations, irregular heart rhythm, edema, swelling of feet/ankles, lightheadedness, syncope, pre-syncope, dyspnea on exertion, orthopnea, leg pain with exertion or acrocyanosis Resp: Denies: dyspnea, productive cough or pain on inspiration GI: Denies: abdominal pain, nausea, vomiting, heartburn or diarrhea : Denies: difficulty urinating or dysuria Musc: Denies: neck pain, back pain or joint pain Skin/Breast: Denies: rash Neuro: Denies: headache(s), numbness in extremities, weakness in extremities, sensory changes or dizziness Psych: Reports: anxiety PFSH ED PFSH: Medical History Psychiatric care Gastroesophageal reflux disease Intermittent explosive disorder Tourette syndrome Marijuana abuse Tobacco dependence No pertinent family history Homicidal ideation Suicidal ideation Acute depression Methamphetamine abuse Surgical History No pertinent past surgical history Family History Denies family history of Clotting disorder Anesthesia complication Bleeding disorder Social History Smoking and tobacco/nicotine status: current every day tobacco/nicotine user cigarettes Packs smoked per day: 1 Years cigarettes smoked: 20 Alcohol intake: current Alcohol intake frequency: few times a month Substance/Drug Use: current Substance/Drug use frequency: daily Other substance/drug use details: formerly used meth Physical Exam Const: COMMON NORMALS: no acute distress, average body habitus, patient oriented x3, no limitations, alert and well nourished GENERAL APPEARANCE: cooperative ORIENTATION/CONSCIOUSNESS: Yes awake, Yes oriented to person, Yes oriented to place and Yes oriented to time HENMT: COMMON NORMALS: normocephalic and atraumatic HEAD & SCALP: normal to inspection, normocephalic and atraumatic FACE & SINUS: normal facial exam and face symmetric Neck/C-Spine: COMMON NORMALS: full ROM, no lymphadenopathy, supple, no meningeal signs and no JVD Chest: COMMONS NORMALS: normal inspection of the chest and normal palpation of entire chest wall Resp: COMMON NORMALS: normal respiratory effort and clear to auscultation bilaterally AUSCULTATION: clear to auscultation bilaterally Cardio: COMMON NORMALS: no JVD, regular rate and regular rhythm RATE: regular rate RHYTHM: regular rhythm GI: COMMON NORMALS: Normal to inspection, nondistended, normoactive bowel sounds present, Soft to palpation, non-tender, No hepatosplenomegaly present and no masses PALPATION: Yes Soft to palpation and Yes No hepatosplenomegaly present Back/Pelvis: COMMON NORMALS: thoracic and lumbar spine normal to inspection and no thoracic nor lumbar tenderness Extremity: COMMON NORMALS: normal to inspection, capillary refill normal, no clubbing, cyanosis or edema, no calf tenderness and no pedal edema GENERAL: Yes normal exam except as noted Neuro: PHILIP COMA SCALE: document GCS findings Philip coma scale eye opening: Spontaneous [place] coma scale verbal response: Orientated Philip coma scale motor response: Obey commands [place] coma scale total score: 15 COMMON NORMALS: patient oriented x3, moves all extremities, no focal motor deficits, no sensory deficits noted and gait normal SENSORIUM/ORIENTATION: Yes alert, Yes oriented to person, Yes oriented to place and Yes oriented to time MENINGEAL SIGNS: Yes no meningeal signs Psych: COMMON NORMALS: mental status grossly normal, Normal thought process present, cooperative and speech normal APPEARANCE: Yes grossly normal ATTITUDE: Yes calm ACTIVITY/MOTOR BEHAVIOR: Yes appropriate eye contact SPEECH: Yes normal speech MOOD & AFFECT: Yes euthymic mood THOUGHT PROCESS: Normal thought process present INSIGHT: Good insight present (Psych) JUDGEMENT: Good judgement present (Psych) Skin: COMMON NORMALS: no rashes or lesions noted GENERAL SKIN EXAM: no rashes or lesions noted Course Vital Signs: Vital signs: Vital Signs Temperature 98.1 F 07/04/25 12:01 Pulse Rate 77 07/04/25 12:01 Respiratory Rate 17 07/04/25 12:01 Blood Pressure 102/71 07/04/25 12:01 Pulse Oximetry 98 07/04/25 12:01 Oxygen Delivery Me thod Room Air 07/04/25 12:01 MDM - Chest Pain Medical Decision Making Patient here for improving chest pain that started after he got upset and was yelling/screaming at his dog. Differential diagnoses at this time would include ACS, angina, coronary artery spasm, costochondritis, chest wall pain, anxiety, among others. Patient clinically is appearing in no acute distress throughout his stay. His blood work including baseline and 2-hour troponins are unremarkable. Baseline repeat EKGs showed no ischemic changes. CXR is stable. At this time patient will be allowed discharge with recommendations to follow-up with primary care for reevaluation. Return to ED precautions discussed. HEART score on this patient would be 1. Medical Records I reviewed the patient's medical records. Lab Data I reviewed the patient's lab results. 07/04/25 12:09 07/04/25 12:09 Radiology Impressions Chest X-Ray 07/04/25 11:53 IMPRESSION: Stable chest without acute abnormality. Laboratory Results WBC 6.77 10^3/uL (3.29-11.43) 07/04/25 12:09 RBC 4.75 10^6/uL (3.85-5.65) 07/04/25 12:09 Hgb 14.40 g/dL (11.27-16.99) 07/04/25 12:09 Hct 43.6 % (37-53) 07/04/25 12:09 MCV 91.8 fl (82-101) 07/04/25 12:09 MCH 30.3 pg (27-33) 07/04/25 12:09 MCHC 33.0 g/dL (30-55) 07/04/25 12:09 RDW 13.2 % (12.1-15.1) 07/04/25 12:09 Plt Count 185 10^3/cmm (157-399) 07/04/25 12:09 MPV 12.5 fL (7.4-10.4) H 07/04/25 12:09 Neut % (Auto) 50.0 % 07/04/25 12:09 Lymph % (Auto) 37.2 % 07/04/25 12:09 [place] % (Auto) 8.0 % 07/04/25 12:09 Eos % (Auto) 3.8 % 07/04/25 12:09 Baso % (Auto) 0.9 % 07/04/25 12:09 Neut # (Auto) 3.38 10^3/uL (1.8-7.7) 07/04/25 12:09 Lymph # (Auto) 2.5 10^3/uL (0.8-4.8) 07/04/25 12:09 [place] # (Auto) 0.5 10^3/uL (0.2-0.9) 07/04/25 12:09 Eos # (Auto) 0.3 10^3/uL (0.0-0.8) 07/04/25 12:09 Baso # (Auto) 0.1 10^3/uL (0.0-0.1) 07/04/25 12:09 Nucleated RBC % (auto) 0 % 07/04/25 12:09 Nucleated RBCs # 0.0 /100WBC 07/04/25 12:09 Sodium 136 mmol/L (136-145) 07/04/25 12:09 Potassium 4.0 mmol/L (3.5-5.1) 07/04/25 12:09 Chloride 100 mmol/L (98-107) 07/04/25 12:09 Carbon Dioxide 28 mmol/L (22-29) 07/04/25 12:09 Anion Gap 12.0 (5-19) 07/04/25 12:09 BUN 14 mg/dL (6-20) 07/04/25 12:09 Creatinine 1.0 mg/dL (0.7-1.2) 07/04/25 12:09 GFR Calculation 81.6 mL/min (90-130) L 07/04/25 12:09 Glucose 103 mg/dL (65-115) 07/04/25 12:09 Calculated Osmolality 283 mOsm/kg (285-295) L 07/04/25 12:09 Calcium 9.3 mg/dL (8.5-10.5) 07/04/25 12:09 Total Bilirubin 0.3 mg/dL (0.15-1.2) 07/04/25 12:09 AST 15 U/L (0-40) 07/04/25 12:09 ALT 13 U/L (0-41) 07/04/25 12:09 Alkaline Phosphatase 54 U/L (40-130) 07/04/25 12:09 Troponin T Baseline 9 ng/L (0-15) 07/04/25 12:09 Troponin T 120 Minute 7.53 ng/L (0-15) 07/04/25 14:04 Delta Troponin T -1.47 ABS# (0-10) L 07/04/25 14:04 Total Protein 6.5 g/dL (6.6-8.7) L 07/04/25 12:09 Albumin 4.5 g/dL (3.5-5.2) 07/04/25 12:09 Globulin 2.0 g/dL (1.3-4.6) 07/04/25 12:09 Lipase 17 U/L (13-60) 07/04/25 12:09 All radiology interpretation(s) finalized by discharge EKG Data EKG 1: I personally reviewed and interpreted this EKG as follows: EKG interpretation date: 07/04/25 EKG interpretation time: 11:57 Interpretation: Sinus rhythm Rate [address] elevation or depression changes noted CA interval is normal EKG 2: I personally reviewed and interpreted this EKG as follows: EKG interpretation date: 07/04/25 EKG interpretation time: 13:59 Prior EKG tracings: available for review Interpretation: Sinus rhythm Rate 62 Normal CA interval No acute ST elevation or depression changes noted No acute changes when compared to EKG performed earlier on same day Clincial Decision Support The following clinical decision support tools were used to aid in care of the patient HEART Score -> History: Slightly Suspicous, EKG: Normal, Age: Less than 45 yrs, Risk Factors: 1 or 2 Risk Factors, Troponin: Baseline Trop <16 ng/L. Resulting HEART Score: 1. Discharge Plan Discharge Patient Disposition: Home Clinical Impression: Atypical chest pain Condition: Stable Prescriptions: No Action atorvastatin 10 mg tablet 10 mg PO BEDTIME pantoprazole 40 mg tablet,delayed release (DR/EC) 40 mg PO DAILY ondansetron HCl 4 mg tablet 4 mg PO Q6H PRN (Reason: nausea and vomiting) Qty: 20 0RF trazodone 50 mg tablet 50 mg PO BEDTIME ondansetron 4 mg tablet,disintegrating 4 mg PO Q6H PRN (Reason: nausea and vomiting) Qty: 14 0RF Discharge Orders: Discharge ED (Routine); Ordered 07/04/25 Ordered By: Azalea Andino Referrals: Edison Randall MD [Primary Care Provider, Family Practice] Patient Instructions: Chest Pain - Noncardiac, Chest Pain (DC), Patient Portal & Karan Instructions Activity Restrictions/Additional Instructions: Your cardiac workup here was unremarkable including 2 sets of troponins and EKGs. You may follow-up with primary care later this week for reevaluation/ER follow-up. He may return to the emergency department at anytime for any further concerns you may have. Print Language: Syriac Coding Level of Care Code ED Data Librarian for Chg Fwd Heart Score HEART Score Components History: Slightly Suspicous EKG: Normal Age: Less than 45 yrs Risk Factors: 1 or 2 Risk Factors Troponin: Baseline Trop <16 ng/L HEART Score RESULT HEART Score: 1
[2025-07-04 14:33] LABS: Troponin 5 2HR 7.53 ng/L (0-15)
[2025-07-04 14:35] LABS: Troponin 5 2HR Delta -1.47 ABS# (0-10)
[2025-07-04 15:03] VITALS: BP 129/73; PULSE 54; O2SAT 98
[2025-07-04 15:05] VITALS: BP 129/73; PULSE 49; O2SAT 98
== END 2025-07-04 15:09 | disposition home or self-care (01) ==
PROVIDERS: Emergency Provider Physician Assistant; PCP Family Medicine
DX: R07.89 Other chest pain (principal); F17.210 Nicotine dependence, cigarettes, uncomplicated
CPT/HCPCS: 36415; 71045; 80053; 83690; 84484; 85025; 93005; 99285

== ENCOUNTER 2025-07-09 15:04 | Emergency (ER) | payer MEDICAID, SELFPAY ==
--- OUTSIDE RECORDS SUMMARY | 2025-07-09 15:08 | XMS_ITS | Clinical Summary ---
Author Organization [facility] Address [address] Baronn: [place] [address] Care Team Providers Care Furnace Keeper Name Role Phone Unavailable Primary Care Provider Unavailabl e Allergies Active Allergy Reactions Criticality Noted Date Comments Coconut Anaphylaxis High 03/19/2019 Venom-Wasp Anaphylaxis High 03/19/2019 Immunizations Immunization Administration Dates Next Due (ADACEL/BOOSTRIX)(10 YR UP) TDAP VACCINE, 0.5ML, IM 03/19/2019 Social History Tobacco Use Types Packs/Day Years Used Date Smoking Tobacco: Every Day Cigarettes Alcohol Use Standard Drinks/Week Comments Not Currently 0 (1 standard drink = 0.6 oz pur e alcohol) Sex and Gender Information Value Date Recorded Sex Assigned at Not on file 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 Gender Identity Not on file Sexual Orientation Not on file Last Filed Vital Signs Vital Sign Reading Time Taken Comments Blood Pressure 115/77 03/19/2019 11:30 PM CDT Pulse 67 03/19/2019 10:30 PM CDT Temperature 36.9 C (98.5 F) 03/19/2019 9:42 PM CDT Respiratory Rate 20 03/19/2019 11:3 0 PM CDT Oxygen Saturation - - Inhaled Oxygen Concentration - - Weight 67.1 kg (147 lb 14.4 oz) 03/19/2019 9:42 PM CDT Height 170.2 cm (5' 7 ) 03/19/2019 9:42 PM CDT Body Mass Index 23.16 03/19/2019 9:42 PM CDT Plan of Treatment Health Maintenance Due Date Last Done Comments HEPATITIS B VACCINES (1 of 3 - 19+ 3-dose series) 02/15 HPV VACCINES (1 - 3-dose SCDM series) 2009 INFLUENZA VACCINE (#1) 2025 DTAP/TDAP/TD VACCINES (2 - Td or Tdap) 03/19/2029
[2025-07-09 15:10] VITALS: BP 111/52; PULSE 120; RESP 18; TEMP 36.7; O2SAT 95; BMI 23.5
[2025-07-09 15:24] VITALS: BP 99/64; PULSE 66; O2SAT 100
--- NOTE | 2025-07-09 15:28 | W.ED.GENADLT ---
HPI - General Adult General: Chief complaint: General Medical Stated complaint: hard lump rectum Time Seen by Provider: 07/09/25 15:16 Source: patient Mode of arrival: ambulatory Limitations: no limitations History of Present Illness: Patient is a 45-year-old male presents the emergency department complaining of lump to his rectum. States he was sent here by an urgent care as they told him he was having bleeding into hard knot and this scared him. Denies personal history of hemorrhoids. He does note that it did start after straining to have a bowel movement, he has a chronic history of difficulty with bowel movements. Area is very painful to the touch. No fevers or systemic symptoms of illness. Pain is also worse when he sits. Does report some blood on the toilet paper when he wipes. MD complaint: rectal lump/pain Onset (ago): day(s) (4) Associated symptoms: Deny chest pain, dyspnea, headache(s), nausea, rash, palpitations or vomiting Related Data Home Medications ?Medication ?Instructions ?Recorded ?Confirmed atorvastatin 10 mg tablet 10 mg PO BEDTIME 01/27/25 06/12/25 pantoprazole 40 mg tablet,delayed 40 mg PO DAILY 04/04/25 06/12/25 release trazodone 50 mg tablet 50 mg PO BEDTIME 06/12/25 06/12/25 Previous Rx's ?Medication ?Instructions ?Recorded ondansetron HCl 4 mg tablet 4 mg PO Q6H PRN nausea and 04/04/25 vomiting #20 tabs ondansetron 4 mg disintegrating 4 mg PO Q6H PRN nausea and 06/12/25 tablet vomiting #14 tabs hydrocortisone 1 % topical cream 1 applic topical BID PRN 07/09/25 (Cortisone (hydrocortisone)) hemorrhoids #28.35 grams Allergies Allergy/AdvReac Type Severity Reaction Status Date / Time coconut Allergy Severe cannot Verified 07/09/25 15:12 breathe fentanyl Allergy Unknown Verified 07/09/25 15:12 guanfacine (From Tenex) Allergy Unknown Verified 07/09/25 15:12 promethazine (From Phenergan) Allergy ADR-Nausea Verified 07/09/25 15:12 Review of Systems General: Reports: 10 or more systems reviewed and unremarkable except in HPI and below Const: Denies: fever(s), chills or fatigue Eyes: Denies: change in vision ENMT: Denies: throat pain, ear or mastoid pain or nasal discharge Card: Denies: chest pain, palpitations, swelling of feet/ankles or lightheadedness Resp: Denies: dyspnea, productive cough or wheezing GI: Reports: pain on defecation, rectal pain and other (rectal bleeding); Denies: abdominal pain, nausea, vomiting, diarrhea or constipation : Denies: flank pain, difficulty urinating, dysuria or urinary frequency Musc: Denies: neck pain, back pain or joint pain Skin/Breast: Denies: rash Neuro: Denies: headache(s), numbness in extremities or weakness in extremities PFSH ED PFSH: Medical History Psychiatric care Gastroesophageal reflux disease Intermittent explosive disorder Tourette syndrome Marijuana abuse Tobacco dependence No pertinent family history Homicidal ideation Suicidal ideation Acute depression Methamphetamine abuse Surgical History No pertinent past surgical history Family History Denies family history of Clotting disorder Anesthesia complication Bleeding disorder Social History Smoking and tobacco/nicotine status: current every day tobacco/nicotine user cigarettes Packs smoked per day: 1 Years cigarettes smoked: 20 Alcohol intake: current Alcohol intake frequency: few times a month Substance/Drug Use: current Substance/Drug use frequency: daily Other substance/drug use details: formerly used meth Physical Exam Const: COMMON NORMALS: no acute distress, average body habitus, patient oriented x3, no limitations, healthy appearing, alert and well nourished GENERAL APPEARANCE: cooperative and comfortable ORIENTATION/CONSCIOUSNESS: Yes awake GI: COMMON NORMALS: Normal to inspection, nondistended, normoactive bowel sounds present, Soft to palpation, non-tender, No hepatosplenomegaly present and no masses AUSCULTATION: Yes normoactive bowel sounds PALPATION: Yes Soft to palpation, No Guarding due to palpation present (GI), No Rigid due to palpation and Yes No hepatosplenomegaly present OTHER: Large external hemorrhoid, nonthrombosed. Tender to palpation. No bleeding. Extremity: COMMON NORMALS: normal to inspection and full ROM Neuro: COMMON NORMALS: patient oriented x3, moves all extremities, no focal motor deficits and no sensory deficits noted SENSORIUM/ORIENTATION: Yes alert Psych: COMMON NORMALS: mental status grossly normal, cooperative and speech normal SPEECH: Yes normal speech Skin: COMMON NORMALS: no rashes or lesions noted GENERAL SKIN EXAM: no rashes or lesions noted Course Vital Signs: Vital signs: Vital Signs Temperature 98.1 F 07/09/25 15:10 Pulse Rate 66 07/09/25 15:24 Respiratory Rate 18 07/09/25 15:10 Blood Pressure 99/64 07/09/25 15:24 Pulse Oximetry 100 07/09/25 15:24 Oxygen Delivery Me thod Room Air 07/09/25 15:24 MDM - General Adult Medical Decision Making Patient presenting with rectal lump and pain, appears clinically consistent with an external hemorrhoid. Discussed with him treatment options for home, and that there is no reason for I&D or other management or intervention in the ER at this time. He is discharged home with medication sent to pharmacy. Gave him return precautions. No radiology studies performed this visit Discharge Plan Discharge Patient Disposition: Home Clinical Impression: External hemorrhoid Condition: Stable Prescriptions: New hydrocortisone [Cortisone (hydrocortisone)] 1 % cream 1 applic topical BID PRN (Reason: hemorrhoids) Qty: 28.35 0RF No Action atorvastatin 10 mg tablet 10 mg PO BEDTIME pantoprazole 40 mg tablet,delayed release (DR/EC) 40 mg PO DAILY ondansetron HCl 4 mg tablet 4 mg PO Q6H PRN (Reason: nausea and vomiting) Qty: 20 0RF trazodone 50 mg tablet 50 mg PO BEDTIME ondansetron 4 mg tablet,disintegrating 4 mg PO Q6H PRN (Reason: nausea and vomiting) Qty: 14 0RF Discharge Orders: Discharge ED (Routine); Ordered 07/09/25 Ordered By: Sarbjit Lomas Referrals: Edison Randall MD [Primary Care Provider, Family Practice] Patient Instructions: Patient Portal & Karan Instructions Activity Restrictions/Additional Instructions: External Hemorrhoid Discharge Instructions You have been diagnosed with an external hemorrhoid. This is a common condition that can cause pain, swelling, and itching around the anus. The following instructions will help you manage your symptoms and promote healing. 1. Medication - Use the prescribed hydrocortisone cream as directed. Apply a thin layer to the affected area up to twice daily, especially after bowel movements and at bedtime. This cream helps reduce inflammation, itching, and discomfort. - Do not use the cream for longer than recommended by your doctor, as long-term use can cause skin problems. 2. Diet and Fluids - Eat a high-fiber diet (fruits, vegetables, whole grains) to soften stools and reduce straining. Aim for 25?35 grams of fiber per day. - Drink plenty of water (at least 6?8 glasses daily) to help prevent constipation. 3. Bowel Habits - Avoid straining or sitting on the toilet for long periods. Try to go as soon as you feel the urge. - If you are constipated, consider using a fiber supplement (like psyllium) as recommended by your doctor. 4. Hygiene and Comfort - Gently clean the anal area with warm water after bowel movements. Avoid harsh soaps or wipes. - You may use sitz baths (sitting in warm water for 10?15 minutes) several times a day to relieve discomfort. 5. Activity - Avoid heavy lifting or activities that increase pressure in the anal area until symptoms improve. 6. When to Seek Help - Call your doctor if you have severe pain, heavy bleeding, fever, or if symptoms do not improve after one week of treatment. Most people improve with these measures. If symptoms persist, further evaluation may be needed. Print Language: Czech Coding Level of Care Code ED Project Assistant for Linnea Couch
[2025-07-09 15:44] VITALS: BP 106/76; PULSE 68; O2SAT 98
== END 2025-07-09 15:47 | disposition home or self-care (01) ==
PROVIDERS: Emergency Provider Physician Assistant; PCP Family Medicine
DX: K64.4 Residual hemorrhoidal skin tags (principal)
CPT/HCPCS: 99283